=== PATIENT | female | born 1960 | race Caucasian/White ===

== ENCOUNTER 2019-03-08 08:56 | Emergency (ER) | payer MEDICAID ==
[~2019-03-08] VITALS: Ht 149.9 cm; Wt 53.1 kg
[2019-03-08 09:43] VITALS: BP 147/74
== END 2019-03-08 11:13 | disposition left against medical advice (07) ==
LOC: ER 08:56
DX: J02.9 Acute pharyngitis, unspecified (principal); E11.9 Type 2 diabetes mellitus without complications; I10 Essential (primary) hypertension; E78.5 Hyperlipidemia, unspecified; F17.210 Nicotine dependence, cigarettes, uncomplicated; Z12.10 Encounter for screening for malignant neoplasm of intestinal tract, unspecified; Z86.73 Personal history of transient ischemic attack (TIA), and cerebral infarction without residual deficits; Z53.29 Procedure and treatment not carried out because of patient's decision for other reasons

== ENCOUNTER 2019-03-13 06:28 | Emergency (ER) | payer MEDICAID ==
[~2019-03-13] VITALS: Ht 149.9 cm; Wt 53.1 kg
[2019-03-13 08:00] VITALS: BP 126/68
== END 2019-03-13 08:11 | disposition home or self-care (01) ==
LOC: ER 06:28
DX: H66.91 Otitis media, unspecified, right ear (principal); J02.9 Acute pharyngitis, unspecified; E11.9 Type 2 diabetes mellitus without complications; E78.5 Hyperlipidemia, unspecified; I10 Essential (primary) hypertension; F17.210 Nicotine dependence, cigarettes, uncomplicated; F12.90 Cannabis use, unspecified, uncomplicated; Z86.73 Personal history of transient ischemic attack (TIA), and cerebral infarction without residual deficits

== ENCOUNTER 2021-01-07 10:53 | Inpatient (IN) | payer MEDICAID ==
[~2021-01-07] VITALS: Ht 142.2 cm; Wt 57.7 kg
[2021-01-07] VITALS (12 sets, daily range): BP systolic 91–143; BP diastolic 55–75
[2021-01-07] MEDS ORDERED: PIPERACILLIN-TAZOB 3.375GM 100 ML IV ONE (11:15)
[2021-01-07] MEDS ORDERED: VANCOMYCIN PER PHARMACY 0 MG IV SCH (11:15)
[2021-01-07] MEDS ORDERED: SODIUM CHLORIDE 0.9% 1,000 ML IV ONE (11:15)
[2021-01-07 11:32] LABS: Basophils # (auto) 0 10 ^3/uL (0-0.2); Basophils % (auto) 0.3 % (0.0-2.0); Eosinophils # (auto) 0 10 ^3/uL (0-0.8); Hematocrit 34.3 % (36.0-46.0); Hemoglobin 11.5 g/dL (12.2-16.2); Lymphocytes # (auto) 0.6 10 ^3/uL (0.4-5.4); Lymphocytes % (auto) 5.8 % (10.0-50.0); Mean Corpuscular Hemoglobin 29.4 pg (28.0-32.0); Mean Corpuscular Hgb Conc. 33.6 g/dL (32.0-36.0); Mean Corpuscular Volume 87.6 fL (80.0-100.0); Monocytes # (auto) 0.3 10 ^3/uL (0-1.3); Monocytes % (auto) 2.4 % (0.0-12.0); Neutrophils % (auto) 91.5 % (37.0-80.0); Platelet Count (auto) 271 10^3/uL (140-450); Red Blood Cells 3.92 10^6/uL (4.0-5.20); Red Cell Distribution Width 15.1 % (11.8-14.3)
[2021-01-07 11:47] LABS: INR 1.18 (0.9-1.15); Partial Thromboplastin Time 30.3 sec (23.0-31.2)
[2021-01-07] MEDS: SODIUM CHLORIDE 0.9% 1,000 ML IV ONE ×2 (12:15→12:48)
[2021-01-07 12:40] LABS: Albumin 2.6 g/dL (3.4-5.0); Anion Gap 14 (5-15); Blood Urea Nitrogen 25 mg/dL (7-18); Carbon Dioxide 16 mmol/L (21-32); Chloride 104 mmol/L (98-107); Glucose 201 mg/dL (74-106); Lactic Acid w/Reflex 4.1 mmol/L (0.4-2.0); Sodium 134 mmol/L (136-145)
[2021-01-07 12:43] LABS: Alanine Aminotransferase 52 U/L (13-56); Aspartate Aminotransferase 34 U/L (15-37); BUN/Creatinine Ratio 16.6; Blood Alcohol < 3.0 mg/dL (0-5); GFR African American 45 mL/min; GFR Non-African American 37 mL/min
[2021-01-07 12:48] LABS: Alkaline Phosphatase 78 U/L (45-117); Bilirubin, Total 0.6 mg/dL (0.2-1.0); Total Protein 7.3 g/dL (6.4-8.2)
[2021-01-07 12:57] LABS: Magnesium 0.8 mg/dL (1.6-2.6); Potassium 2.7 mmol/L (3.5-5.1)
[2021-01-07] MEDS ORDERED: POTASSIUM CHL 20MEQ/100ML 100 ML IV ONE (13:00)
[2021-01-07] MEDS ORDERED: LIDOCAINE 1% HCL (LOCAL ANESTH.) INJ 20ML MDV ID ONE (13:30)
[2021-01-07] MEDS: MAGNESIUM SULFATE 1GM/100ML 100 ML IV SCH ×5 (13:41→18:30)
[2021-01-07] MEDS ORDERED: NOREPINEPHRINE 8 MG/250ML KIT 250 ML IV ONE (13:49)
[2021-01-07] MEDS: NOREPINEPHRINE 8 MG/250ML KIT 250 ML IV SCH (14:14)
[2021-01-07] MEDS ORDERED: methylPREDNISolone SOD SUCC 125 MG/2 ML VL IV ONE (14:15)
[2021-01-07] MEDS ORDERED: ETOMIDATE (2MG/ML) 20ML VIAL IV ONE ×2 (14:29→14:30)
[2021-01-07] MEDS ORDERED: SUCCINYLCHOLINE CHLORIDE 20 MG/ML 10ML VIAL IV ONE ×2 (14:30)
[2021-01-07] MEDS ORDERED: PROPOFOL 100 ML IV ONE (14:30)
[2021-01-07] MEDS: PROPOFOL 100 ML IV SCH (14:40)
[2021-01-07] MEDS ORDERED: MIDAZOLAM HCL 5 MG/ML-1ML VIAL ONE ×2 (14:49→14:51)
[2021-01-07] MEDS ORDERED: MIDAZOLAM HCL 5 MG/ML-1ML VIAL IV ONE (15:00)
[2021-01-07] MEDS ORDERED: VANCOMYCIN 1GM/250ML 250 ML IV ONE (16:00)
[2021-01-07 16:26] LABS: Urine Amorphous Crystal FEW /hpf (None Seen); Urine Bacteria FEW /hpf (None Seen); Urine Blood Negative /uL (Negative); Urine Specific Gravity 1.031 (1.001-1.035); Urine WBC 2 /hpf (0 - 5)
[2021-01-07 16:45] LABS: Alcohol, Urine < 3.0 mg/dL (0-10); Amphetamine Screen, Urine POSITIVE (NEGATIVE); Barbiturate Scree,Urine NEGATIVE (NEGATIVE); Benzodiazephine Screen, Urine NEGATIVE (NEGATIVE); Cannabinoid Screen, Urine NEGATIVE (NEGATIVE); Cocaine Screen, Urine NEGATIVE (NEGATIVE); Opiate Scree,Urine NEGATIVE (NEGATIVE); Phencyclidine Screen, Urine NEGATIVE (NEGATIVE)
[2021-01-07] MEDS: SODIUM BICARBONATE 50ML VIAL 100 ML in SOD CHL 0.45% 1,000 ML IV SCH (19:08)
[2021-01-07] MEDS ORDERED: levoFLOXacin 500MG 100 ML IV ONE (20:00)
[2021-01-07] MEDS ORDERED: ACETAMINOPHEN 325 MG TAB PO PRN (20:00)
[2021-01-07 21:17] LABS: Amylase 28 U/L (25-115); Lipase 25 U/L (73-393)
[2021-01-07 21:19] LABS: Creatine Kinase IFCC 40 U/L (26-192)
[2021-01-07] MEDS ORDERED: SIMV-8 PO (21:31)
[2021-01-07] MEDS ORDERED: ENAL20TA8 PO (21:31)
[2021-01-07] MEDS ORDERED: BRIM0.2S17 EACHEYE (21:31)
[2021-01-07] MEDS ORDERED: FERR325T20 PO (21:31)
[2021-01-07] MEDS ORDERED: ALEN70TA74 PO (21:31)
[2021-01-07] MEDS ORDERED: DORZ2SOL26 (21:32)
[2021-01-07] MEDS ORDERED: GLIP5TAB12 PO (21:32)
[2021-01-07] MEDS ORDERED: METF-372 PO (21:32)
[2021-01-07] MEDS ORDERED: CLOP75TA70 PO (21:32)
[2021-01-07] MEDS ORDERED: LATA0.0019 RIGHTEYE (21:32)
[2021-01-08] VITALS (104 sets, daily range): BP systolic 86–148; BP diastolic 55–82
[2021-01-08] MEDS: PROPOFOL 100 ML IV SCH ×5 (00:46→20:04)
[2021-01-08] MEDS ORDERED: SODIUM BICARBONATE 8.4 % INJ 50ML VIAL IV ONE (02:13)
[2021-01-08] MEDS ORDERED: DEXTROSE (50%) 50ML SYRG IV PRN (02:15)
[2021-01-08] MEDS: MIDAZOLAM DRIP 50 mg/50mL 50 ML IV SCH ×2 (02:44→13:25)
[2021-01-08] MEDS: SODIUM BICARBONATE 50ML VIAL 100 ML in SOD CHL 0.45% 1,000 ML IV SCH ×2 (02:44→09:59)
[2021-01-08 05:29] LABS: Basophils # (auto) 0 10 ^3/uL (0-0.2); Eosinophils # (auto) 0 10 ^3/uL (0-0.8); Hematocrit 28.4 % (36.0-46.0); Hemoglobin 9.5 g/dL (12.2-16.2); Lymphocytes # (auto) 0.8 10 ^3/uL (0.4-5.4); Lymphocytes % (auto) 4.3 % (10.0-50.0); Mean Corpuscular Hemoglobin 28.8 pg (28.0-32.0); Mean Corpuscular Hgb Conc. 33.5 g/dL (32.0-36.0); Mean Corpuscular Volume 85.9 fL (80.0-100.0); Monocytes # (auto) 0.6 10 ^3/uL (0-1.3); Monocytes % (auto) 3.2 % (0.0-12.0); Neutrophils # (auto) 18.2 10 ^3/uL (1.6-8.6); Neutrophils % (auto) 92.5 % (37.0-80.0); Platelet Count (auto) 254 10^3/uL (140-450); Red Cell Distribution Width 14.9 % (11.8-14.3); White Blood Cell 19.7 10^3/uL (4.4-10.8)
[2021-01-08 05:37] LABS: BUN/Creatinine Ratio 31.1; Calcium 7.4 mg/dL (8.5-10.1); Potassium 3.5 mmol/L (3.5-5.1)
[2021-01-08 05:38] LABS: % Iron Saturation 2.8 % (15-50)
[2021-01-08 05:53] LABS: Alanine Aminotransferase 37 U/L (13-56); Albumin 2.1 g/dL (3.4-5.0); Bilirubin, Direct 0.1 mg/dL (0-0.2)
[2021-01-08] MEDS: InsuLIN REG 1unit/0.01ml Soln (100units/ml) SC SCH ×3 (05:55→17:34)
[2021-01-08] MEDS: ACCU-CHEK COMFORT CURVE STRIP VI SCH ×4 (05:55→23:59)
[2021-01-08 06:01] LABS: Alkaline Phosphatase 116 U/L (45-117); Aspartate Aminotransferase 15 U/L (15-37); Bilirubin, Total 0.3 mg/dL (0.2-1.0); Total Protein 6.5 g/dL (6.4-8.2)
[2021-01-08 06:03] LABS: INR 1.09 (0.9-1.15); Partial Thromboplastin Time 35.2 sec (23.0-31.2)
[2021-01-08 06:14] LABS: CRP High Sensitivity > 19 mg/dL (< 0.3)
[2021-01-08] MEDS: ALBUTEROL SULF 2.5 MG/0.5ML(0.5%) NEB SOLN NEB SCH ×4 (06:41→18:19)
[2021-01-08] MEDS: IPRATROPIUM BROM 0.5 MG/2.5ML INH SOL NEB SCH ×4 (06:41→18:19)
[2021-01-08] MEDS: DexAMETHasone SOD PHOS 10MG/1ML VIAL INJ IV SCH (09:38)
[2021-01-08] MEDS: levoFLOXacin 250MG 50 ML IV SCH (09:38)
[2021-01-08] MEDS: ENOXAPARIN SOD 40 MG/0.4 ML SYRINGE SC SCH (09:39)
[2021-01-08] MEDS: CLOPIDOGREL BISULFATE 75 MG TAB PO SCH (09:39)
[2021-01-08] MEDS: VANCOMYCIN 1GM/250ML 250 ML IV SCH ×2 (10:30→20:59)
[2021-01-08] MEDS: NOREPINEPHRINE 8 MG/250ML KIT 250 ML IV SCH (14:00)
[2021-01-08] MEDS ORDERED: REMDESIVIR PER PHARMACY 0 ML IV SCH (16:00)
[2021-01-08] MEDS ORDERED: REMDESIVIR 200 MG in NS 210ml LOADING DOSE ADULT IV ONE (17:00)
[2021-01-08] MEDS: ATORVASTATIN 20 MG TAB PO SCH (21:54)
[2021-01-09] VITALS (98 sets, daily range): BP systolic 92–165; BP diastolic 58–92
[2021-01-09] MEDS: IPRATROPIUM BROM 0.5 MG/2.5ML INH SOL NEB SCH ×4 (00:17→18:21)
[2021-01-09] MEDS: ALBUTEROL SULF 2.5 MG/0.5ML(0.5%) NEB SOLN NEB SCH ×4 (00:17→18:21)
[2021-01-09] MEDS: PROPOFOL 100 ML IV SCH ×4 (01:36→22:57)
[2021-01-09] MEDS: MIDAZOLAM DRIP 50 mg/50mL 50 ML IV SCH (01:37)
[2021-01-09 04:34] LABS: Albumin 1.9 g/dL (3.4-5.0); Calcium 7.1 mg/dL (8.5-10.1); Potassium 3.6 mmol/L (3.5-5.1)
[2021-01-09 04:38] LABS: BUN/Creatinine Ratio 37.2; Bilirubin, Total 0.3 mg/dL (0.2-1.0); Total Protein 6.4 g/dL (6.4-8.2)
[2021-01-09] MEDS: ACCU-CHEK COMFORT CURVE STRIP VI SCH ×4 (06:00→23:55)
[2021-01-09] MEDS: InsuLIN REG 1unit/0.01ml Soln (100units/ml) SC SCH ×5 (06:03→23:56)
[2021-01-09] MEDS: CLOPIDOGREL BISULFATE 75 MG TAB PO SCH ×2 (07:15→10:00)
[2021-01-09] MEDS: VANCOMYCIN 1GM/250ML 250 ML IV SCH ×2 (09:01→21:00)
[2021-01-09] MEDS: DexAMETHasone SOD PHOS 10MG/1ML VIAL INJ IV SCH (09:55)
[2021-01-09] MEDS: levoFLOXacin 250MG 50 ML IV SCH (09:56)
[2021-01-09] MEDS: ENOXAPARIN SOD 40 MG/0.4 ML SYRINGE SC SCH (09:56)
[2021-01-09] MEDS: NOREPINEPHRINE 8 MG/250ML KIT 250 ML IV SCH (13:25)
[2021-01-09] MEDS ORDERED: DEXTROSE (50%) 50ML SYRG IV PRN (14:45)
[2021-01-09] MEDS ORDERED: clonazePAM 0.5 MG TAB PO SCH (15:00)
[2021-01-09] MEDS: REMDESIVIR 100mg 100 MG in SODIUM CHL 0.9% 230 ML IV SCH (15:18)
[2021-01-09] MEDS: QUEtiapine FUMARATE 25 MG TAB PO SCH ×2 (15:47→22:10)
[2021-01-09] MEDS: ATORVASTATIN 20 MG TAB PO SCH (22:10)
[2021-01-09] MEDS: clonazePAM 0.5 MG TAB PO SCH (22:10)
[2021-01-09] MEDS: BRIMONIDINE 0.2% OPTH Soln 5ml EACHEYE SCH (22:10)
[2021-01-10] VITALS (105 sets, daily range): BP systolic 102–172; BP diastolic 62–96
[2021-01-10] MEDS: ALBUTEROL SULF 2.5 MG/0.5ML(0.5%) NEB SOLN NEB SCH ×4 (00:20→18:57)
[2021-01-10] MEDS: IPRATROPIUM BROM 0.5 MG/2.5ML INH SOL NEB SCH ×4 (00:20→18:57)
[2021-01-10] MEDS: MIDAZOLAM DRIP 50 mg/50mL 50 ML IV SCH ×2 (01:56→20:30)
[2021-01-10] MEDS: PROPOFOL 100 ML IV SCH ×4 (03:52→21:48)
[2021-01-10] MEDS ORDERED: VANCOMYCIN 1GM/250ML 250 ML IV ONE (04:00)
[2021-01-10 04:26] LABS: Calcium 7.3 mg/dL (8.5-10.1); Potassium 3.6 mmol/L (3.5-5.1)
[2021-01-10 04:30] LABS: BUN/Creatinine Ratio 37.8; Bilirubin, Total 0.4 mg/dL (0.2-1.0); Total Protein 6.4 g/dL (6.4-8.2)
[2021-01-10] MEDS: BRIMONIDINE 0.2% OPTH Soln 5ml EACHEYE SCH ×3 (05:58→21:46)
[2021-01-10] MEDS: ACCU-CHEK COMFORT CURVE STRIP VI SCH ×3 (05:58→17:34)
[2021-01-10] MEDS: InsuLIN REG 1unit/0.01ml Soln (100units/ml) SC SCH ×3 (05:59→17:34)
[2021-01-10] MEDS: DexAMETHasone SOD PHOS 10MG/1ML VIAL INJ IV SCH (09:52)
[2021-01-10] MEDS: levoFLOXacin 250MG 50 ML IV SCH (09:52)
[2021-01-10] MEDS: clonazePAM 0.5 MG TAB PO SCH ×3 (09:53→21:46)
[2021-01-10] MEDS: CLOPIDOGREL BISULFATE 75 MG TAB PO SCH (09:53)
[2021-01-10] MEDS: PANTOPRAZOLE 40 MG/10 ML VIAL INJ IV SCH (09:53)
[2021-01-10] MEDS: ENOXAPARIN SOD 40 MG/0.4 ML SYRINGE SC SCH (09:53)
[2021-01-10] MEDS: QUEtiapine FUMARATE 25 MG TAB PO SCH ×2 (09:53→21:47)
[2021-01-10] MEDS: NOREPINEPHRINE 8 MG/250ML KIT 250 ML IV SCH (14:00)
[2021-01-10] MEDS: REMDESIVIR 100mg 100 MG in SODIUM CHL 0.9% 230 ML IV SCH (14:51)
[2021-01-10 16:04] LABS: Hematocrit 27.2 % (36.0-46.0); Hemoglobin 9.3 g/dL (12.2-16.2); Mean Corpuscular Hemoglobin 29.8 pg (28.0-32.0); Mean Corpuscular Hgb Conc. 34.1 g/dL (32.0-36.0); Mean Corpuscular Volume 87.4 fL (80.0-100.0); Platelet Count (auto) 226 10^3/uL (140-450); Red Blood Cells 3.11 10^6/uL (4.0-5.20); Red Cell Distribution Width 15.5 % (11.8-14.3); White Blood Cell 12.3 10^3/uL (4.4-10.8)
[2021-01-10 16:06] LABS: Basophils % (manual) 0 (0.0-2.0); Blast Cells 0; Eosinophils % (manual) 0 (0-7); Metamyelocytes % 0; Myelocytes % 0; Promyelocytes % 0; Reactive Lymphocytes 0
[2021-01-10 17:03] LABS: Band Neutrophils % (manual) 4; Lymphocytes % (manual) 8 (10.0-50.0); Monocytes % (manual) 9 (0-12)
[2021-01-10] MEDS ORDERED: VANCOMYCIN 1GM/250ML 250 ML IV SCH (20:00)
[2021-01-10] MEDS: ATORVASTATIN 20 MG TAB PO SCH (21:47)
[2021-01-11] VITALS (104 sets, daily range): BP systolic 118–154; BP diastolic 71–93
[2021-01-11] MEDS: IPRATROPIUM BROM 0.5 MG/2.5ML INH SOL NEB SCH ×4 (00:06→18:42)
[2021-01-11] MEDS: ALBUTEROL SULF 2.5 MG/0.5ML(0.5%) NEB SOLN NEB SCH ×4 (00:06→18:42)
[2021-01-11] MEDS: ACCU-CHEK COMFORT CURVE STRIP VI SCH ×5 (00:27→23:03)
[2021-01-11] MEDS: InsuLIN REG 1unit/0.01ml Soln (100units/ml) SC SCH ×5 (00:28→23:03)
[2021-01-11] MEDS: FERROUS SULFATE 300 MG/5 ML ORAL LIQ GT SCH ×4 (00:49→23:02)
[2021-01-11] MEDS: MIDAZOLAM DRIP 50 mg/50mL 50 ML IV SCH ×2 (03:30→19:47)
[2021-01-11] MEDS: PROPOFOL 100 ML IV SCH ×3 (03:30→20:16)
[2021-01-11 04:51] LABS: Hematocrit 28.2 % (36.0-46.0); Hemoglobin 9.6 g/dL (12.2-16.2); Mean Corpuscular Hemoglobin 29.2 pg (28.0-32.0); Mean Corpuscular Hgb Conc. 33.9 g/dL (32.0-36.0); Mean Corpuscular Volume 86.1 fL (80.0-100.0); Platelet Count (auto) 218 10^3/uL (140-450); Red Blood Cells 3.28 10^6/uL (4.0-5.20); Red Cell Distribution Width 14.9 % (11.8-14.3); White Blood Cell 11.3 10^3/uL (4.4-10.8)
[2021-01-11 05:01] LABS: Potassium 3.4 mmol/L (3.5-5.1)
[2021-01-11 05:08] LABS: Albumin 2.1 g/dL (3.4-5.0); BUN/Creatinine Ratio 31.2; Basophils % (manual) 0 (0.0-2.0); Bilirubin, Total 0.3 mg/dL (0.2-1.0); Blast Cells 0; Calcium 7.7 mg/dL (8.5-10.1); Eosinophils % (manual) 0 (0-7); Promyelocytes % 0; Reactive Lymphocytes 0; Total Protein 6.4 g/dL (6.4-8.2)
[2021-01-11 05:47] LABS: Band Neutrophils % (manual) 2; Lymphocytes % (manual) 19 (10.0-50.0); Metamyelocytes % 1; Monocytes % (manual) 6 (0-12); Myelocytes % 3
[2021-01-11] MEDS: BRIMONIDINE 0.2% OPTH Soln 5ml EACHEYE SCH ×3 (06:12→23:02)
[2021-01-11] MEDS: PANTOPRAZOLE 40 MG/10 ML VIAL INJ IV SCH (09:52)
[2021-01-11] MEDS: clonazePAM 0.5 MG TAB PO SCH ×2 (09:52→23:02)
[2021-01-11] MEDS: levoFLOXacin 250MG 50 ML IV SCH (09:52)
[2021-01-11] MEDS: CLOPIDOGREL BISULFATE 75 MG TAB PO SCH (09:52)
[2021-01-11] MEDS: DexAMETHasone SOD PHOS 10MG/1ML VIAL INJ IV SCH (09:52)
[2021-01-11] MEDS: ENOXAPARIN SOD 40 MG/0.4 ML SYRINGE SC SCH (09:53)
[2021-01-11] MEDS: QUEtiapine FUMARATE 25 MG TAB PO SCH ×2 (09:53→23:03)
[2021-01-11] MEDS ORDERED: IOHEXOL 350 MG/ML 100ML IJ ONE (10:48)
[2021-01-11] MEDS: NOREPINEPHRINE 8 MG/250ML KIT 250 ML IV SCH (14:00)
[2021-01-11] MEDS: REMDESIVIR 100mg 100 MG in SODIUM CHL 0.9% 230 ML IV SCH (15:49)
[2021-01-11] MEDS: ATORVASTATIN 20 MG TAB PO SCH (23:03)
[2021-01-12] VITALS (79 sets, daily range): BP systolic 131–175; BP diastolic 66–129
[2021-01-12] MEDS: ALBUTEROL SULF 2.5 MG/0.5ML(0.5%) NEB SOLN NEB SCH ×4 (00:47→18:00)
[2021-01-12] MEDS: IPRATROPIUM BROM 0.5 MG/2.5ML INH SOL NEB SCH ×4 (00:47→18:00)
[2021-01-12] MEDS: PROPOFOL 100 ML IV SCH (04:09)
[2021-01-12 04:59] LABS: Hematocrit 31.5 % (36.0-46.0); Hemoglobin 10.3 g/dL (12.2-16.2); Mean Corpuscular Hemoglobin 28.5 pg (28.0-32.0); Mean Corpuscular Hgb Conc. 32.8 g/dL (32.0-36.0); Platelet Count (auto) 262 10^3/uL (140-450); Red Blood Cells 3.62 10^6/uL (4.0-5.20); White Blood Cell 11.2 10^3/uL (4.4-10.8)
[2021-01-12 05:16] LABS: Albumin 2.1 g/dL (3.4-5.0); Basophils % (manual) 0 (0.0-2.0); Blast Cells 0; Calcium 8.4 mg/dL (8.5-10.1); Eosinophils % (manual) 0 (0-7); Potassium 3.5 mmol/L (3.5-5.1); Promyelocytes % 0; Reactive Lymphocytes 0
[2021-01-12 05:17] LABS: INR 0.96 (0.9-1.15); Partial Thromboplastin Time 23.9 sec (23.0-31.2)
[2021-01-12 05:19] LABS: BUN/Creatinine Ratio 39.1; Bilirubin, Total 0.3 mg/dL (0.2-1.0); Total Protein 6.3 g/dL (6.4-8.2)
[2021-01-12] MEDS: InsuLIN REG 1unit/0.01ml Soln (100units/ml) SC SCH ×4 (05:19→23:58)
[2021-01-12] MEDS: ACCU-CHEK COMFORT CURVE STRIP VI SCH ×4 (05:19→23:58)
[2021-01-12] MEDS: FERROUS SULFATE 300 MG/5 ML ORAL LIQ GT SCH ×3 (05:36→21:32)
[2021-01-12] MEDS: BRIMONIDINE 0.2% OPTH Soln 5ml EACHEYE SCH ×3 (05:36→21:32)
[2021-01-12 05:45] LABS: Band Neutrophils % (manual) 4; Lymphocytes % (manual) 22 (10.0-50.0); Metamyelocytes % 1; Monocytes % (manual) 8 (0-12); Myelocytes % 1
[2021-01-12] MEDS: levoFLOXacin 250MG 50 ML IV SCH (10:39)
[2021-01-12] MEDS: DexAMETHasone SOD PHOS 10MG/1ML VIAL INJ IV SCH (10:39)
[2021-01-12] MEDS: clonazePAM 0.5 MG TAB PO SCH ×2 (10:40→21:32)
[2021-01-12] MEDS: ENOXAPARIN SOD 40 MG/0.4 ML SYRINGE SC SCH (10:40)
[2021-01-12] MEDS: QUEtiapine FUMARATE 25 MG TAB PO SCH ×2 (10:40→21:33)
[2021-01-12] MEDS: CLOPIDOGREL BISULFATE 75 MG TAB PO SCH (10:40)
[2021-01-12] MEDS: PANTOPRAZOLE 40 MG/10 ML VIAL INJ IV SCH (10:40)
[2021-01-12] MEDS ORDERED: LORazepam 2MG/ML-1ML VIAL ONE (12:26)
[2021-01-12] MEDS ORDERED: LORazepam 2MG/ML-1ML VIAL IV PRN (13:00)
[2021-01-12] MEDS: REMDESIVIR 100mg 100 MG in SODIUM CHL 0.9% 230 ML IV SCH (15:28)
[2021-01-12] MEDS ORDERED: hydrALAZINE HCL 20 MG/ML VL IV PRN (17:00)
[2021-01-12] MEDS: MORPHINE SULF INJ 2 MG/ML SYRINGE 1ML IV PRN (18:58)
[2021-01-12] MEDS: NOREPINEPHRINE 8 MG/250ML KIT 250 ML IV SCH (19:00)
[2021-01-12] MEDS ORDERED: HALOPERIDOL LACTATE 5 MG/ML INJ VIAL IV PRN ×3 (20:45→21:30)
[2021-01-12] MEDS: ATORVASTATIN 20 MG TAB PO SCH (21:32)
[2021-01-13] VITALS (7 sets, daily range): BP systolic 104–151; BP diastolic 61–96
[2021-01-13] MEDS: ALBUTEROL SULF 2.5 MG/0.5ML(0.5%) NEB SOLN NEB SCH ×4 (05:40→18:46)
[2021-01-13] MEDS: IPRATROPIUM BROM 0.5 MG/2.5ML INH SOL NEB SCH ×4 (05:40→18:46)
[2021-01-13] MEDS: InsuLIN REG 1unit/0.01ml Soln (100units/ml) SC SCH ×4 (06:35→23:52)
[2021-01-13] MEDS: ACCU-CHEK COMFORT CURVE STRIP VI SCH ×4 (06:35→23:51)
[2021-01-13] MEDS: FERROUS SULFATE 300 MG/5 ML ORAL LIQ GT SCH ×3 (06:52→22:03)
[2021-01-13] MEDS: BRIMONIDINE 0.2% OPTH Soln 5ml EACHEYE SCH ×3 (06:52→22:03)
[2021-01-13] MEDS: MORPHINE SULF INJ 2 MG/ML SYRINGE 1ML IV PRN (08:22)
[2021-01-13] MEDS: levoFLOXacin 250MG 50 ML IV SCH (10:17)
[2021-01-13] MEDS: DexAMETHasone SOD PHOS 10MG/1ML VIAL INJ IV SCH (10:17)
[2021-01-13] MEDS: PANTOPRAZOLE 40 MG/10 ML VIAL INJ IV SCH (10:17)
[2021-01-13] MEDS: CLOPIDOGREL BISULFATE 75 MG TAB PO SCH (10:17)
[2021-01-13] MEDS: QUEtiapine FUMARATE 25 MG TAB PO SCH ×2 (10:18→22:04)
[2021-01-13 10:37] LABS: Hematocrit 37.2 % (36.0-46.0); Hemoglobin 12.1 g/dL (12.2-16.2); Mean Corpuscular Hemoglobin 28.2 pg (28.0-32.0); Mean Corpuscular Hgb Conc. 32.7 g/dL (32.0-36.0); Mean Corpuscular Volume 86.3 fL (80.0-100.0); Platelet Count (auto) 273 10^3/uL (140-450); Red Blood Cells 4.31 10^6/uL (4.0-5.20); White Blood Cell 13.6 10^3/uL (4.4-10.8)
[2021-01-13 10:39] LABS: Basophils % (manual) 0 (0.0-2.0); Blast Cells 0; Eosinophils % (manual) 0 (0-7); Promyelocytes % 0; Reactive Lymphocytes 0
[2021-01-13 10:50] LABS: BUN/Creatinine Ratio 38.8; Calcium 8.4 mg/dL (8.5-10.1)
[2021-01-13 11:29] LABS: Potassium 2.7 mmol/L (3.5-5.1)
[2021-01-13] MEDS ORDERED: POTASSIUM EFFERVESENT TAB 25 MEQ PO ONE (12:30)
[2021-01-13] MEDS ORDERED: POTASSIUM CHL 20MEQ/100ML 100 ML IV ONE (12:30)
[2021-01-13 13:40] LABS: Band Neutrophils % (manual) 2; Lymphocytes % (manual) 10 (10.0-50.0)
[2021-01-13 13:41] LABS: Metamyelocytes % 5; Monocytes % (manual) 5 (0-12); Myelocytes % 3
[2021-01-13] MEDS: FREE WATER PO SCH ×3 (15:17→22:03)
[2021-01-13 18:03] LABS: BUN/Creatinine Ratio 30.2; Potassium 4.6 mmol/L (3.5-5.1)
[2021-01-13] MEDS: ATORVASTATIN 20 MG TAB PO SCH (22:03)
[2021-01-14] MEDS: ALBUTEROL SULF 2.5 MG/0.5ML(0.5%) NEB SOLN NEB SCH ×3 (00:35→11:47)
[2021-01-14] MEDS: IPRATROPIUM BROM 0.5 MG/2.5ML INH SOL NEB SCH ×3 (00:35→11:47)
[2021-01-14] MEDS: FREE WATER PO SCH ×4 (02:00→14:00)
[2021-01-14 04:48] VITALS: BP 109/61
[2021-01-14] MEDS: BRIMONIDINE 0.2% OPTH Soln 5ml EACHEYE SCH ×2 (05:58→13:28)
[2021-01-14] MEDS: FERROUS SULFATE 300 MG/5 ML ORAL LIQ GT SCH ×2 (05:58→13:29)
[2021-01-14] MEDS: ACCU-CHEK COMFORT CURVE STRIP VI SCH ×2 (05:59→10:58)
[2021-01-14] MEDS: InsuLIN REG 1unit/0.01ml Soln (100units/ml) SC SCH ×2 (05:59→11:11)
[2021-01-14 08:44] VITALS: BP 111/60
[2021-01-14] MEDS: DexAMETHasone SOD PHOS 10MG/1ML VIAL INJ IV SCH (09:56)
[2021-01-14] MEDS: CLOPIDOGREL BISULFATE 75 MG TAB PO SCH (09:57)
[2021-01-14] MEDS: PANTOPRAZOLE 40 MG/10 ML VIAL INJ IV SCH (09:57)
[2021-01-14] MEDS: QUEtiapine FUMARATE 25 MG TAB PO SCH (09:57)
[2021-01-14] MEDS: levoFLOXacin 250MG 50 ML IV SCH (09:57)
[2021-01-14 13:00] VITALS: BP 94/53
== END 2021-01-14 15:52 | DRG 720 ==
LOC: ER 10:53 → TELE 19:56 → ICU WEST 21:40 → TELE-EAST 01-13 00:45
PROVIDERS: ADMIT Internal Medicine; ATTEND Internal Medicine
PROC: 02HV33Z Insertion of Infusion Device into Superior Vena Cava, Percutaneous Approach (ICD-10-PCS; principal; 2021-01-07)
PROC: 5A1955Z Respiratory Ventilation, Greater than 96 Consecutive Hours (ICD-10-PCS; 2021-01-07)
PROC: 0BH17EZ Insertion of Endotracheal Airway into Trachea, Via Natural or Artificial Opening (ICD-10-PCS; 2021-01-07)
PROC: XW033E5 Introduction of Remdesivir Anti-infective into Peripheral Vein, Percutaneous Approach, New Technology Group 5 (ICD-10-PCS; 2021-01-08)
DX: A41.89 Other specified sepsis (principal); U07.1 COVID-19; J96.01 Acute respiratory failure with hypoxia; R65.21 Severe sepsis with septic shock; J12.82 Pneumonia due to coronavirus disease 2019; E87.4 Mixed disorder of acid-base balance; N17.9 Acute kidney failure, unspecified; E83.42 Hypomagnesemia; F15.20 Other stimulant dependence, uncomplicated; E11.9 Type 2 diabetes mellitus without complications; E78.5 Hyperlipidemia, unspecified; E87.6 Hypokalemia; H40.9 Unspecified glaucoma; I10 Essential (primary) hypertension; J98.11 Atelectasis; M81.0 Age-related osteoporosis without current pathological fracture; F17.210 Nicotine dependence, cigarettes, uncomplicated; F12.90 Cannabis use, unspecified, uncomplicated; Z86.73 Personal history of transient ischemic attack (TIA), and cerebral infarction without residual deficits; Z82.49 Family history of ischemic heart disease and other diseases of the circulatory system; Z79.4 Long term (current) use of insulin; Z79.02 Long term (current) use of antithrombotics/antiplatelets; Z80.0 Family history of malignant neoplasm of digestive organs
CPT/HCPCS: 31500; 36415; 36600; 51702; 70450; 71045; 71250; 71275; 80048; 80053; 80076; 80202; 80307; 80320; 81001; 82150; 82550; 82728; 82805; 82962; 83540; 83550; 83605; 83690; 83735; 83880; 84484; 85007; 85025; 85027; 85379; 85610; 85730; 86141; 87040; 87070; 87081; 87086; 87205; 87426; 93005; 93970; 94002; 94003; 94640; 96365; 96366; 96367; 96375; 97110; A4618; C9113; G0378; J0330; J1100; J1815; J1956; J2250; J2543; J2704; J3480; J7060

== ENCOUNTER 2021-03-06 14:32 | Emergency (ER) | payer MEDICARE, MEDICAID ==
[~2021-03-06] VITALS: Ht 149.9 cm; Wt 54.0 kg
[~2021-03-06 14:32] MED LIST: ALEN70TA74 PO; BRIM0.2S17 EACHEYE; CLOP75TA70 PO; DORZ2SOL26; ENAL20TA8 PO; FERR325T20 PO; GLIP5TAB12 PO; LATA0.0019 RIGHTEYE; METF-372 PO; SIMV-8 PO
[2021-03-06 14:48] VITALS: BP 117/66
[2021-03-06 15:19] LABS: Basophils # (auto) 0.1 10 ^3/uL (0-0.2); Basophils % (auto) 0.7 % (0.0-2.0); Eosinophils # (auto) 0.4 10 ^3/uL (0-0.8); Eosinophils % (auto) 4.7 % (0.0-7.0); Hematocrit 33.9 % (36.0-46.0); Hemoglobin 11.6 g/dL (12.2-16.2); Lymphocytes # (auto) 1.7 10 ^3/uL (0.4-5.4); Lymphocytes % (auto) 21.7 % (10.0-50.0); Mean Corpuscular Hemoglobin 28.8 pg (28.0-32.0); Mean Corpuscular Hgb Conc. 34.2 g/dL (32.0-36.0); Mean Corpuscular Volume 84.3 fL (80.0-100.0); Monocytes # (auto) 0.5 10 ^3/uL (0-1.3); Monocytes % (auto) 6.3 % (0.0-12.0); Neutrophils # (auto) 5.1 10 ^3/uL (1.6-8.6); Neutrophils % (auto) 66.6 % (37.0-80.0); Platelet Count (auto) 298 10^3/uL (140-450); Red Blood Cells 4.02 10^6/uL (4.0-5.20); Red Cell Distribution Width 14.2 % (11.8-14.3); White Blood Cell 7.7 10^3/uL (4.4-10.8)
[2021-03-06 15:34] LABS: Albumin 3.7 g/dL (3.4-5.0); Calcium 9.1 mg/dL (8.5-10.1); Potassium 3.9 mmol/L (3.5-5.1)
[2021-03-06 15:37] LABS: BUN/Creatinine Ratio 28.7; Bilirubin, Total 0.3 mg/dL (0.2-1.0)
[2021-03-06 16:45] LABS: Urine Bacteria FEW /hpf (None Seen); Urine Blood Negative /uL (Negative); Urine Hyaline Cast FEW /lpf (0 - 2); Urine Specific Gravity 1.029 (1.001-1.035); Urine WBC 36 /hpf (0 - 5)
[2021-03-06 16:51] LABS: Alcohol, Urine < 3.0 mg/dL (0-10); Amphetamine Screen, Urine POSITIVE (NEGATIVE); Barbiturate Scree,Urine NEGATIVE (NEGATIVE); Benzodiazephine Screen, Urine NEGATIVE (NEGATIVE); Cannabinoid Screen, Urine NEGATIVE (NEGATIVE); Cocaine Screen, Urine NEGATIVE (NEGATIVE); Opiate Scree,Urine NEGATIVE (NEGATIVE); Phencyclidine Screen, Urine NEGATIVE (NEGATIVE)
== END 2021-03-06 16:34 | disposition home or self-care (01) ==
LOC: ER 14:32
DX: B34.9 Viral infection, unspecified (principal); F12.10 Cannabis abuse, uncomplicated; F15.10 Other stimulant abuse, uncomplicated; I10 Essential (primary) hypertension; E11.9 Type 2 diabetes mellitus without complications; E78.5 Hyperlipidemia, unspecified; Z86.73 Personal history of transient ischemic attack (TIA), and cerebral infarction without residual deficits; Z87.891 Personal history of nicotine dependence; Z79.899 Other long term (current) drug therapy; Z98.890 Other specified postprocedural states
CPT/HCPCS: 36415; 70450; 80053; 80307; 81001; 82728; 85025; 86141

== ENCOUNTER 2023-03-04 09:35 | Emergency (ER) | payer MEDICARE, MEDICAID ==
[~2023-03-04] VITALS: Ht 149.9 cm; Wt 56.2 kg
[2023-03-04] MEDS ORDERED: VALA1TAB PO (11:25)
[2023-03-04] MEDS ORDERED: TRAM50TA2 PO (11:25)
[2023-03-04 11:36] LABS: Urine Bacteria NONE SEEN /hpf (None Seen); Urine Blood Negative /uL (Negative); Urine Specific Gravity 1.028 (1.001-1.035); Urine WBC 2 /hpf (0 - 5)
[2023-03-04 11:43] VITALS: BP 101/82
== END 2023-03-04 11:49 | disposition home or self-care (01) ==
LOC: ER 09:35
DX: B02.9 Zoster without complications (principal); E11.9 Type 2 diabetes mellitus without complications; I10 Essential (primary) hypertension; E78.5 Hyperlipidemia, unspecified; F12.10 Cannabis abuse, uncomplicated; F15.10 Other stimulant abuse, uncomplicated; Z86.73 Personal history of transient ischemic attack (TIA), and cerebral infarction without residual deficits; Z98.890 Other specified postprocedural states; Z87.891 Personal history of nicotine dependence
CPT/HCPCS: 81001

== ENCOUNTER 2024-10-25 08:47 | Emergency (ER) | payer OTHER, MEDICAID ==
[~2024-10-25] VITALS: Ht 147.3 cm; Wt 47.8 kg
[~2024-10-25 08:47] MED LIST changes: +ENAL1TAB48 PO; -ENAL20TA8 PO; -GLIP5TAB12 PO; +GLIP5TAB21 PO; -LATA0.0019 RIGHTEYE; +LATA0.008 RIGHTEYE; -SIMV-8 PO; +SIMV20TA20 PO; +TRAM50TA2 PO; +VALA1TAB PO
--- NOTE | 2024-10-25 09:16 | ED.PDOC ---
Back pain HPI HPI Comments This is a pleasant 64-year-old female with no pertinent MHx that presents with a chief complaint of nonradiating right-sided rib pain x5 days. Onset occurred suddenly after patient hit her rib on her freezer attempting to pull out Tamales. He denies water and worsens with lateral movements. Denies chest pain shortness of breath. Chief Complaint: Rib Pain Time Seen by MD: 09:04 Primary Care Provider: derrell Gutierrez Notes: Nurses Notes, Medications, Allergies Allergies: Coded Allergies: NO KNOWN ALLERGIES (Unverified , 04/04/10) Home Meds Active Scripts Valacyclovir Hcl (Valtrex) 1 Gm Tab, 1 TAB PO TID, #21 TAB Prov:BRIAN FRANCO MD 03/04/23 Tramadol Hcl (Tramadol Hcl) 50 Mg Tab, 50 MG PO Q6HP PRN for 5 Days, #20 TAB Prov:BRIAN FRANCO MD 03/04/23 Reported Medications Glipizide (Glipizide) 5 Mg Tab, 1 TAB PO BID 01/07/21 Metformin Hydrochloride (Metformin Hcl) 1,000 Mg Tab, 1 TAB PO BID 01/07/21 Clopidogrel Bisulfate (CLOPIDOGREL) 75 Mg Tab, 1 TAB PO DAILYPRN 01/07/21 Dorzolamide HCl (Dorzolamide Hydrochloride) 2 % Radha 01/07/21 Latanoprost (LATANOPROST) 0.005 % Radha, 1 DROP RIGHTEYE 01/07/21 Ferrous Sulfate (Ferosul) 325 Mg Tab, 1 TAB PO Q8H 01/07/21 Alendronate Sodium (Alendronate Sodium) 70 Mg Tab, 1 TAB PO QWEEKLY 01/07/21 Brimonidine Tartrate (Brimonidine Tartrate) 0.2 % Radha, 1 DROP EACHEYE TID 01/07/21 Simvastatin (Simvastatin) 20 Mg Tab, 1 TAB PO 01/07/21 Enalapril Maleate (Enalapril Maleate) 20 Mg Tab, 1 TAB PO DAILYPRN 01/07/21 Information Source: Patient Mode of Arrival: Ambulatory Past Medical History PAST MEDICAL HISTORY: CVA, DM, High Lipids, HTN 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 Pertinent MANAGER FINE DINING History Family History Family History (Other): Thyroid disease Social History Smoker: Quit Less Than 1 Year Alcohol: Denies ETOH Use Drugs: Marijuana, Methamphetamine Lives In: Home All Other Systems: Reviewed and Negative (Per HPI) Physical Exam General Appearance: No Apparent Distress, Normal HEENT: Normal ENT Inspection, Pharynx Normal, TMs Normal Neck: Full Range of Motion, Non-Tender, Normal, Normal Inspection Respiratory: Chest Non-Tender, Lungs Clear, No Accessory Muscle Use, No Respiratory Distress, Normal Breath Sounds Cardiovascular: No Edema, No JVD, No Murmur, No Gallop, Normal Peripheral Pulses, Regular Rate/Rhythm Breast Exam: Deferred Gastrointestinal: No Organomegaly, Non Tender, No Pulsatile Mass, Normal Bowel Sounds, Soft Genitalia: Deferred Pelvic: Deferred Rectal: Deferred Extremities: No calf tenderness, Normal capillary refill, Normal inspection, Normal range of motion, Non-tender, No pedal edema Musculoskeletal : Apperance: Normal Neurologic: Alert, network operations center technician II-XII nml as Tested, No Motor Deficits, Normal Affect, Normal Mood, No Sensory Deficits Cerebellar Function: Normal Reflexes: Normal Skin: Dry, Normal Color, Warm Lymphatic: No Adenopathy Was a procedure done? Was a procedure done?: No Back Pain Differential Dx Differential Diagnosis: Fracture, Musculoskeletal Pain, Strain, Other X-Ray, Labs, Meds, VS Vital Signs Date Time Temp Pulse Resp B/P (MAP) Pulse Ox O2 Delivery O2 Flow Rate FiO2 10/25/24 09:26 100 16 95 Room Air 10/25/24 09:26 98.1 100 16 143/86 (105) 95 98.1 10/25/24 08:58 98.1 100 16 143/86 (105) 95 PATIENT: AVIS GRACIACT: [id number]: [id number] : 1960 LOC: ER ROOM / BED: / AGE / SEX: 64 / F ADM STATUS: REG ER SERVICE ORDERING PHYSICIAN: CHRISTOPH AZEVEDO NP PROCEDURE(s): RRIBS - R RIB XRAY REASON: possible fracture ORDER NUMBER(s): [id number], ACCESSION NUMBER(s): [id number] EXAMINATION: XY R RIB XRAY INDICATION: possible fracture COMPARISON: None TECHNIQUE: Frontal view of the chest and oblique views of the right ribs. FINDINGS: No focal consolidation, pleural effusion or significant pneumothorax. Normal cardiomediastinal silhouette. No displaced right rib fracture. IMPRESSION: 1. No acute cardiopulmonary disease. No displaced right rib fracture. ATED BY: CHATO ANDERSON MD DICTATED DATE/TIME: 10/25/24935 SIGNED BY: CHATO ANDERSON MD SIGNED DATE/TIME: 10/25/24935 CC: X-Ray, Labs, Meds, VS Comment History and physical exam consistent with musculoskeletal pain Supportive care advised (rest, ice, heat, NSAIDs, stretching exercises) Massage muscles with cold pack or ice for 20 minutes 4 times per day. Usually most useful if there is swelling during the first 48 hours Heating pad on the most painful area for 20 minutes to relieve muscle spasm Sleep and the most comfortable sleeping position (usually on the side with knees bent) Light stretching, no strenuous activity, avoid frequent bending, avoid carrying heavy objects Discussed possible benefits of yoga and acupuncture On reevaluation, patient had symptomatic improvement. Patient is stable for discharge at this time. External notes reviewed. Test results and diagnostic imaging interpreted. All diagnostic findings, discharge care, education and instructions provided Follow-up with PCP in 2 to 3 days Patient verbalized understanding and agreed to treatment plan Vital signs stable, afebrile, no acute distress noted Patient ambulatory with strong steady gait Advised to return precautions for any new or worsening symptoms, return to ER immediately for re-evaluation Patient is aware that the purpose of this visit was for an acute medical emergency requiring emergent stabilization. Chronic conditions, including malignancies have not been ruled out. Patient is instructed to follow up with PCP as directed and discharge instructions for continued care and workup. If unable to arrange follow-up, patient is to return to the emergency department for reassessment. Patient (parent or legal guardian if applicable) was given verbal and written discharge instructions and acknowledges understanding. Time of 1ST Reevaluation: 09:16 Reevaluation 1ST: Improved Patient Education/Counseling: Diagnosis, Treatment Family Education/Counseling: Diagnosis, Treatment Departure 1 Departure Time of Disposition: 10:35 Impression: Primary Impression: Blunt trauma of rib Qualified Codes: S29.8XXA - Other specified injuries of thorax, initial encounter Disposition: HOME / SELF CARE / HOMELESS Condition: Stable Discharged With: Self Critical Care Note Critical Care Time?: No Stability Stability form required: No Heart Score Heart Score: Heart Score Response (Comments) Value History N/A 0 EKG N/A 0 Age N/A 0 Risk Factors N/A 0 Troponin N/A 0 Total 0 CHRISTOPH AZEVEDO NP Oct 25, 2024 09:16
[2024-10-25 09:26] VITALS: BP 143/86; PULSE 100; RESP 16; TEMP 98.1; O2SAT 95
--- NOTE | 2024-10-25 09:39 | DVH ---
EXAMINATION: XY R RIB XRAY INDICATION: possible fracture COMPARISON: None TECHNIQUE: Frontal view of the chest and oblique views of the right ribs. FINDINGS: No focal consolidation, pleural effusion or significant pneumothorax. Normal cardiomediastinal silhou ette. No displaced right rib fracture. IMPRESSION: 1. No acute cardiopulmonary disease. No displaced right rib fracture.
[2024-10-25] MEDS: KETOROLAC TROMETH 30 MG/ML 1ML VIAL IM ONE (10:54)
== END 2024-10-25 11:02 | disposition home or self-care (01) ==
LOC: ER 08:47
DX: S29.8XXA Other specified injuries of thorax, initial encounter (principal); E11.9 Type 2 diabetes mellitus without complications; I10 Essential (primary) hypertension; E78.5 Hyperlipidemia, unspecified; Z87.891 Personal history of nicotine dependence; Z79.84 Long term (current) use of oral hypoglycemic drugs; Z86.73 Personal history of transient ischemic attack (TIA), and cerebral infarction without residual deficits; X58.XXXA Exposure to other specified factors, initial encounter; Y93.89 Activity, other specified; Y92.89 Other specified places as the place of occurrence of the external cause; Y99.8 Other external cause status
CPT/HCPCS: 71101; 96372; 99283; J1885

== ENCOUNTER 2024-11-15 15:21 | Inpatient (IN) | payer OTHER, MEDICAID ==
[~2024-11-15] VITALS: Ht 149.9 cm; Wt 49.5 kg
[2024-11-15] MEDS: SODIUM CHLORIDE 0.9% 1,000 ML IV ONE (15:45)
[2024-11-15] MEDS: DEXTROSE (50%) 50ML SYRG IV ONE (15:46)
[2024-11-15 15:48] VITALS: PULSE 88; RESP 24; O2SAT 99
[2024-11-15] MEDS: DEXTROSE 50% SYRINGE 50 ML IV ONE (15:52)
--- NOTE | 2024-11-15 15:56 | ED.PDOC ---
History of present illness HPI Comments 64 y/o F with PMHX of DM, HTN, and HLD presents to the ED for CC of hypoglycemia. Patient states, that she has been experiencing symptoms of dizziness, nausea, and weakness x3days with associated low blood sugar readings. Patient endorses on, taking 1000 units of Metformin bid. Patient's BS on the glucometer read at 64. Patient denies social history. Patient denies tremors, excessive urination, lightheadedness, or N/V/D. No other symptoms or modifying factors at this time. Chief Complaint: Hypoglycemia Time Seen by MD: 15:30 Primary Care Provider: BRINDA History of present illness: Nurses Notes, Medications, Allergies Allergies: Coded Allergies: NO KNOWN ALLERGIES (Unverified , 04/04/10) Home Meds Active Scripts Valacyclovir Hcl (Valtrex) 1 Gm Tab, 1 TAB PO TID, #21 TAB Prov:BRIAN FRANCO MD 03/04/23 Tramadol Hcl (Tramadol Hcl) 50 Mg Tab, 50 MG PO Q6HP PRN for 5 Days, #20 TAB Prov:BRIAN FRANCO MD 03/04/23 Reported Medications Glipizide (Glipizide) 5 Mg Tab, 1 TAB PO BID 01/07/21 Metformin Hydrochloride (Metformin Hcl) 1,000 Mg Tab, 1 TAB PO BID 01/07/21 Clopidogrel Bisulfate (CLOPIDOGREL) 75 Mg Tab, 1 TAB PO DAILYPRN 01/07/21 Dorzolamide HCl (Dorzolamide Hydrochloride) 2 % Radha 01/07/21 Latanoprost (LATANOPROST) 0.005 % Radha, 1 DROP RIGHTEYE 01/07/21 Ferrous Sulfate (Ferosul) 325 Mg Tab, 1 TAB PO Q8H 01/07/21 Alendronate Sodium (Alendronate Sodium) 70 Mg Tab, 1 TAB PO QWEEKLY 01/07/21 Brimonidine Tartrate (Brimonidine Tartrate) 0.2 % Radha, 1 DROP EACHEYE TID 01/07/21 Simvastatin (Simvastatin) 20 Mg Tab, 1 TAB PO 01/07/21 Enalapril Maleate (Enalapril Maleate) 20 Mg Tab, 1 TAB PO DAILYPRN 01/07/21 Information Source: Patient Mode of Arrival: Ambulatory Timing: Days Duration: Since onset Prehospital treatment: None [place]: None History of: Diabetes Modifying factors: Nothing Associated signs and symptoms: Nausea Past Medical History PAST MEDICAL HISTORY: CVA, DM, High Lipids, HTN 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 Pertinent CALCULUS TEACHER History Family History Family History (Other): Thyroid disease Social History Smoker: Quit Less Than 1 Year Alcohol: Denies ETOH Use Drugs: Marijuana, Methamphetamine Lives In: Home Constitutional: reports: weakness; denies: chills, diaphoresis, fatigue, fever, malaise, sweats, others EENTM: denies: blurred vision, double vision, ear bleeding, ear discharge, ear drainage, ear pain, ear ringing, eye pain, eye redness, hearing loss, mouth pain, mouth swelling, nasal discharge, nose bleeding, nose congestion, nose pain, photophobia, tearing, throat pain, throat swelling, voice changes, others Respiratory: denies: cough, hemoptysis, orthopnea, SOB at rest, shortness of breath, SOB with excertion, stridor, wheezing, others Cardiovascular: denies: chest pain, dizzy spells, diaphoresis, Dyspnea on exertion, edema, irregular heart beat, left arm pain, lightheadedness, palpitations, PND, syncope, others Gastrointestinal: reports: nausea; denies: abdomen distended, abdominal pain, blood streaked bowels, constipated, diarrhea, dysphagia, difficulty swallowing, hematemesis, melena, poor appetite, poor fluid intake, rectal bleeding, rectal pain, vomiting, others Genitourinary: denies: abnormal vagina bleeding, burning, dyspareunia, dysuria, flank pain, frequency, hematuria, incontinence, pain, , vagina discharge, urgency, others Neurological: reports: dizziness; denies: fainting, headache, left sided numbness, left sided weakness, numbness, paresthesia, pre-existing deficit, right sided numbness, right sided weakness, seizure, speech problems, tingling, tremors, weakness, others Musculoskeletal: denies: back pain, gout, joint pain, joint swelling, muscle pain, muscle stiffness, neck pain, others Integumetry: denies: bruises, change in color, change in hair/nails, dryness, laceration, lesions, lumps, rash, wounds, others Allergic/Immunocompromised: denies: Difficulty Healing, Frequent Infections, Hives, Itching, others Hematologic/Lymphatic: denies: anemia, blood clots, easy bleeding, easy bruising, swollen glands, others Endocrine: denies: excessive hunger, excessive sweating, excessive thirst, excessive urination, flushing, intolerance to cold, intolerance to heat, unexplained weight gain, unexplained weight loss, others Psychiatric: denies: anxiety, bipolar disorder, depression, hopeless, panic disorder, schizophrenia, sleepless, suicidal, others All Other Systems: Reviewed and Negative Physical Exam General Appearance: Moderate Distress HEENT: Normal ENT Inspection, Pharynx Normal, TMs Normal Neck: Full Range of Motion, Non-Tender, Normal, Normal Inspection Respiratory: Chest Non-Tender, Lungs Clear, No Accessory Muscle Use, No Respiratory Distress, Normal Breath Sounds Cardiovascular: No Edema, No JVD, No Murmur, No Gallop, Normal Peripheral Pulses, Regular Rate/Rhythm Breast Exam: Deferred Gastrointestinal: No Organomegaly, Non Tender, No Pulsatile Mass, Normal Bowel Sounds, Soft Genitalia: Deferred Pelvic: Deferred Rectal: Deferred Extremities: No calf tenderness, Normal capillary refill, Normal inspection, Normal range of motion, Non-tender, No pedal edema Musculoskeletal : Apperance: Normal Neurologic: Alert, stationary boiler fireman II-XII nml as Tested, No Motor Deficits, Normal Affect, Normal Mood, No Sensory Deficits Cerebellar Function: NOT DONE Reflexes: NOT DONE Skin: Dry, Normal Color, Warm Peripheral Pulses: 3+ Radial (R), 3+ Radial (L) Lymphatic: No Adenopathy Was a procedure done? Was a procedure done?: No Differential Diagnosis (DM) Differential Diagnosis: Hyperglycemia, Hypoglycemia, UTI X-Ray, Labs, Meds, VS Vital Signs Date Time Temp Pulse Resp B/P (MAP) Pulse Ox O2 Delivery O2 Flow Rate FiO2 11/15/24 16:08 85 18 112/64 (80) 98 11/15/24 15:48 97.5 88 24 97/59 (72) 99 97.5 11/15/24 15:27 97.4 94 20 96/47 (63) 100 100/53 (69) Lab Test 11/15/24 17:00 11/15/24 16:03 11/15/24 15:48 11/15/24 15:32 Range/Units Urine Color Pending Urine Clarity Pending Urine pH Pending Urine Specific [place] Pending Urine Protein Pending Urine Ketones Pending Urine Blood Pending Urine Nitrite Pending Urine Bilirubin Pending Urine Urobilinogen Pending Urine Leukocyte Esterase Pending Urine RBC Pending Urine Microscopic WBC Pending Urine Squamous Epithelial Cells Pending Urine Bacteria Pending Urine Glucose Pending POC Glucose 264 H 64 L 70-106 mg/dl White Blood Count 7.5 4.4-10.8 10^3/uL Red Blood Count 4.92 4.0-5.20 10^6/uL Hemoglobin 9.5 L 12.2-16.2 g/dL Hematocrit 31.5 L 36.0-46.0 % Mean Corpuscular Volume 64.0 L 80.0-100.0 fL Mean Corpuscular Hemoglobin 19.4 L 28.0-32.0 pg Mean Corpuscular Hemoglobin Concent 30.3 L 32.0-36.0 g/dL Red Cell Distribution Width 16.9 H 11.8-14.3 % Platelet Count 429 140-450 10^3/uL Mean Platelet Volume 8.1 6.9-10.8 fL Neutrophils (%) (Auto) 64.7 37.0-80.0 % Lymphocytes (%) (Auto) 23.6 10.0-50.0 % Monocytes (%) (Auto) 7.0 0.0-12.0 % Eosinophils (%) (Auto) 3.8 0.0-7.0 % Basophils (%) (Auto) 0.9 0.0-2.0 % Neutrophils # (Auto) 4.9 1.6-8.6 10 ^3/uL Lymphocytes # (Auto) 1.8 0.4-5.4 10 ^3/uL Monocytes # (Auto) 0.5 0-1.3 10 ^3/uL Eosinophils # (Auto) 0.3 0-0.8 10 ^3/uL Basophils # (Auto) 0.1 0-0.2 10 ^3/uL Nucleated Red Blood Cells 0.0 % Sodium Level 140 136-145 mmol/L Potassium Level 3.7 3.5-5.1 mmol/L Chloride Level 105 98-107 mmol/L Carbon Dioxide Level 25 20-31 mmol/L Anion Gap 10 5-15 Blood Urea Nitrogen 34 H 9-23 mg/dL Creatinine 1.35 H 0.550-1.02 mg/dL Glomerular Filtration Rate Calc 44 >90 mL/min BUN/Creatinine Ratio 25.2 H 10.0-20.0 Serum Glucose 73 L 74-106 mg/dL Calcium Level 10.3 8.7-10.4 mg/dL Test 11/15/24 15:31 Range/Units POC Glucose 67 L 70-106 mg/dl Current Medications Medications (Trade) Dose Ordered Sig/Emery Route Start Time Stop Time Status Last Admin Sodium Chloride 1,000 ml @ 1,000 mls/hr Q1H ONCE IV 11/15/24 15:45 11/15/24 16:44 DC 11/15/24 15:45 Dextrose 50 ml ONCE ONCE IV 11/15/24 15:45 11/15/24 15:46 DC 11/15/24 15:46 [place] [id number] Ph: [phone] DIAGNOSTIC IMAGING Diagnostic Imaging Report : [id number] Signed PATIENT: AVIS GRACIACT: [id number] UNIT: [id number] : 1960 LOC: ER ROOM / BED: / AGE / SEX: 64 / F ADM STATUS: REG ER SERVICE 1650 ORDERING PHYSICIAN: MARKIE CHACON MD PROCEDURE(s): HWOCT - HEAD WITHOUT CONTRAST REASON: dizzy ORDER NUMBER(s): [id number], ACCESSION NUMBER(s): [id number] EXAM: CT Head Without Intravenous Contrast CLINICAL INDICATION: dizzy TECHNIQUE: Axial computed tomography images of the head/brain without intravenous contrast. This CT exam was performed using one or more of the following dose reduction techniques: automated exposure control, adjustment of the mA and/or kV according to patient size, and/or use of iterative reconstr uction technique. RADIATION DOSE: CTDlvol= 50.8 mGy, DLP= 799.16 mGy-cm COMPARISON: HEAD WITHOUT CONTRAST on DOS: 03/06/21, HEAD WITHOUT CONTRAST on DOS: 01/11/21 FINDINGS: BRAIN AND EXTRA-AXIAL SPACES: Areas of decreased attenuation in the deep cerebral white matter are consistent with small vessel ischemic/degenerative changes. No acute intracranial hemorrhage, midline shift or mass effect. BONES/JOINTS: Unremarkable. No acute fracture. SOFT TISSUES: Unremarkable. SINUSES: Unremarkable as visualized. No acute sinusitis. MASTOID AIR CELLS: Unremarkable as visualized. No mastoid effusion. OTHER FINDINGS: . . IMPRESSION: 1. No acute intracranial hemorrhage, midline shift or mass effect. 2. Small vessel ischemic/degenerative changes. 3. If symptoms persist, further evaluation with MRI is recommended. 4. No significant change from the prior exam. ATED BY: AMY HOLM MD DICTATED DATE/TIME: 11/15/241709 SIGNED BY: AMY HOLM MD SIGNED DATE/TIME: 11/15/241709 CC: Patient alert. Complaining of feeling weak dizzy. Blood sugar low. Was given dextrose. Blood pressure low. Establish intravenous access. Was given fluids. BUN creatinine elevated. Possible dehydration. Responding to fluids. Anemia. Explained to the patient. She does answer questions. Moving all extremities. Continue cardiac monitoring. Time of 1ST Reevaluation: 16:00 Reevaluation 1ST: Unchanged Patient Education/Counseling: Diagnosis, Treatment Family Education/Counseling: No Family Present Departure 1 Departure Time of Disposition: 16:45 Impression: Primary Impression: Hypoglycemia Additional Impressions: ATN (acute tubular necrosis) Hypotension Qualified Codes: I95.9 - Hypotension, unspecified Disposition: ADMITTED INPATIENT Admit to: Med Surg Condition: Guarded Critical Care Note Critical Care Time?: Yes (90 min-critical care time only) Critical care comment: Hypotension hypoglycemia Stability Stability form required: No Heart Score Heart Score: Heart Score Response (Comments) Value History Slightly Suspicious 0 EKG Normal 0 Age >65 2 Risk Factors >3 or Hx ASHD 2 Troponin Normal limit 0 Total 4 I personally scribed for MARKIE CHACON MD ([email or web address]) on 11/15/24 at 15:56. Electronically submitted by Iraida Hamilton ([email or web address] I personally scribed for MARKIE CHACON MD ([email or web address]) on 11/15/24 at 16:07. Electronically submitted by Iraida Hamilton ([email or web address]). I personally scribed for MARKIE CHACON MD ([email or web address]) on 11/15/24 at 17:38. Electronically submitted by Iraida Hamilton ([email or web address]). I personally scribed for MARKIE CHACON MD ([email or web address]) on 11/15/24 at 17:39. Electronically submitted by Iraida Hamilton ([email or web address]). I personally scribed for MARKIE CHACON MD ([email or web address]) on 11/15/24 at 17:40. Electronically submitted by Iraida Hamilton [email or web address]). MARKIE CHACON MD Nov 15, 2024 15:56
[2024-11-15 16:08] LABS: Basophils # (auto) 0.1 10 ^3/uL (0-0.2); Basophils % (auto) 0.9 % (0.0-2.0); Hematocrit 31.5 % (36.0-46.0); Monocytes # (auto) 0.5 10 ^3/uL (0-1.3); Red Blood Cells 4.92 10^6/uL (4.0-5.20)
[2024-11-15 16:10] LABS: Eosinophils # (auto) 0.3 10 ^3/uL (0-0.8); Eosinophils % (auto) 3.8 % (0.0-7.0); Hemoglobin 9.5 g/dL (12.2-16.2); Lymphocytes # (auto) 1.8 10 ^3/uL (0.4-5.4); Lymphocytes % (auto) 23.6 % (10.0-50.0); Mean Corpuscular Hemoglobin 19.4 pg (28.0-32.0); Mean Corpuscular Hgb Conc. 30.3 g/dL (32.0-36.0); Neutrophils # (auto) 4.9 10 ^3/uL (1.6-8.6); Neutrophils % (auto) 64.7 % (37.0-80.0); Platelet Count (auto) 429 10^3/uL (140-450); Red Cell Distribution Width 16.9 % (11.8-14.3); White Blood Cell 7.5 10^3/uL (4.4-10.8)
[2024-11-15 16:20] LABS: Chloride 105 mmol/L (98-107); Potassium 3.7 mmol/L (3.5-5.1); Sodium 140 mmol/L (136-145)
[2024-11-15 16:21] LABS: Anion Gap 10 (5-15); Carbon Dioxide 25 mmol/L (20-31)
[2024-11-15 16:22] LABS: Calcium 10.3 mg/dL (8.7-10.4)
[2024-11-15 16:27] LABS: BUN/Creatinine Ratio 25.2 (10.0-20.0); Blood Urea Nitrogen 34 mg/dL (9-23); Glucose 73 mg/dL (74-106)
--- NOTE | 2024-11-15 17:13 | DVH ---
EXAM: CT Head Without Intravenous Contrast CLINICAL INDICATION: dizzy TECHNIQUE: Axial computed tomography images of the head/brain without intravenous contrast. This CT exam was performed using one or more of the following dose reduction techniques: automated exposure control, adjustment of the mA and/or kV according to patient size, and/or use of iterative reconstru ction technique. RADIATION DOSE: CTDlvol= 50.8 mGy, DLP= 799.16 mGy-cm COMPARISON: HEAD WITHOUT CONTRAST on DOS: 03/06/21, HEAD WITHOUT CONTRAST on DOS: 01/11/21 FINDINGS: BRAIN AND EXTRA-AXIAL SPACES: Areas of decreased attenuation in the deep cerebral white matter are c onsistent with small vessel ischemic/degenerative changes. No acute intracranial hemorrhage, midline shift or mass effect. BONES/JOINTS: Unremarkable. No acute fracture. SOFT TISSUES: Unremarkable. SINUSES: Unremarkable as visualized. No acute sinusitis. MASTOID AIR CELLS: Unremarkable as visualized. No mastoid effusion. OTHER FINDINGS: . . IMPRESSION: 1. No acute intracranial hemorrhage, midline shift or mass effect. 2. Small vessel ischemic/degenerative changes. 3. If symptoms persist, further evaluation with MRI is recommended. 4. No significant change from the prior exam.
[2024-11-15 17:31] LABS: Urine Bacteria None Seen /hpf (None Seen)
[2024-11-15 17:48] LABS: Urine Blood Negative /uL (Negative); Urine Clarity Clear (Clear); Urine Color Yellow (Yellow); Urine Hyaline Cast FEW /lpf (0 - 2); Urine Protein, UAD Negative (Negative); Urine Squamous Epithelial Cell None Seen /hpf (<5); Urine Urobilinogen Normal (Negative); Urine WBC 28 /HPF (0-5); Urine pH 5.5 (5.0-9.0)
[2024-11-15] MEDS ORDERED: DEXTROSE (50%) 50ML SYRG IV PRN (19:15)
[2024-11-15] MEDS ORDERED: ACETAMINOPHEN 325 MG TAB PO PRN (19:15)
[2024-11-15] MEDS ORDERED: ONDANSETRON HCL 4 MG/2 ML VIAL IV PRN (19:15)
[2024-11-15 20:00] VITALS: PULSE 96; RESP 22; O2SAT 96
[2024-11-15] MEDS: ACCU-CHEK COMFORT CURVE STRIP VI SCH (21:15)
[2024-11-15] MEDS: cefTRIAXone 1GM/50ML D5W 50 ML IV ONE (21:21)
[2024-11-15] MEDS: InsuLIN REG 1unit/0.01ml Soln (100units/ml) SC SCH (21:22)
[2024-11-15 21:46] VITALS: BP 102/58; PULSE 92; RESP 20; TEMP 98.3; O2SAT 99
[2024-11-15] MEDS: ATORVASTATIN 20 MG TAB PO SCH (23:34)
[2024-11-16] VITALS (8 sets, daily range): BP systolic 98–141; BP diastolic 54–74; PULSE 88–97; RESP 16–20; TEMP 97.6–98.7; O2SAT 97–100
--- NOTE | 2024-11-16 04:02 | DVHHP2 ---
History of Present Illness Reason for Visit: Generalized weakness History of Present Illness 64-year-old female presents for evaluation of generalized weakness. Presents at the bedside patient has been acting progressively more lethargic over the past three days. He states her blood sugar levels dropped as low as 60. Patient complains of mild dizziness as well. Denies dysuria or hematuria. No abdominal pain. Denies cardiac or respiratory symptoms. Past Medical History Hypertension, dyslipidemia, diabetes mellitus and CVA Past Surgical History Family History Noncontributory Smoke: No ALCOHOL: none Drugs: None Lives: with Family Review of Systems Review of Systems Review of systems are currently negative otherwise addressed in HPI. Allergies: Coded Allergies: NO KNOWN ALLERGIES (Unverified , 04/04/10) Medications Current Medications Medications Dose Ordered Sig/Emery Route Start Time Stop Time Status Last Admin Dose Admin Clopidogrel Bisulfate 75 mg DAILY PO 11/16/24 10:00 Atorvastatin Calcium 20 mg HS PO 11/15/24 22:00 11/15/24 23:34 20 MG Enalapril Maleate 20 mg DAILY PO 11/16/24 10:00 Ceftriaxone Sodium 50 ml @ 100 mls/hr DAILY@09 IV 11/16/24 09:00 Diagnostic Test (Pha) 1 strip IQ4HR 11/15/24 20:00 11/16/24 03:14 1 STRIP Insulin Human Regular IQ4HR SC 11/15/24 20:00 11/16/24 03:14 2 UNITS Dextrose 50 ml UD PRN IV 11/15/24 19:15 Ondansetron HCl 4 mg Q4HP PRN IV 11/15/24 19:15 Acetaminophen 650 mg Q6HP PRN PO 11/15/24 19:15 Exam Vital Signs Vital Signs Date Time Temp Pulse Resp B/P (MAP) Pulse Ox O2 Delivery O2 Flow Rate FiO2 11/16/24 01:00 98.7 97 18 141/74 (96) 97 98.7 11/15/24 20:00 Room Air* 0 21 Exam Gen: 64-year-old female in mild distress Skin: Warm, dry, normal color and texture, no rash. HEENT: Normocephalic atraumatic, mucous membranes moist and pink. Neck: Cervical and supraclavicular nodes normal without enlargement, trachea is midline, thyroid gland is normal without masses. Pulmonary: Clear to auscultation and percussion bilaterally. Cardiac: Regular rate and rhythm. No murmur Abdomen: Soft, nontender, nondistended, bowel sounds present all 4 quadrants, no guarding, no rigidity, no organomegaly. Extremities: No cyanosis, clubbing, no edema Neuro: Cranial nerves II through XII grossly intact, normal affect and speech, no focal motor deficits. Labs/Xrays : 1960 LOC: ER ROOM / BED: / AGE / SEX: 64 / F ADM STATUS: REG ER SERVICE 1650 ORDERING PHYSICIAN: MAKRIE CHACON MD PROCEDURE(s): HWOCT - HEAD WITHOUT CONTRAST REASON: dizzy ORDER NUMBER(s): [id number], ACCESSION NUMBER(s): [id number] EXAM: CT Head Without Intravenous Contrast CLINICAL INDICATION: dizzy TECHNIQUE: Axial computed tomography images of the head/brain without intravenous contrast. This CT exam was performed using one or more of the following dose reduction techniques: automated exposure control, adjustment of the mA and/or kV according to patient size, and/or use of iterative reconstru ction technique. RADIATION DOSE: CTDlvol= 50.8 mGy, DLP= 799.16 mGy-cm COMPARISON: HEAD WITHOUT CONTRAST on DOS: 03/06/21, HEAD WITHOUT CONTRAST on DOS: 01/11/21 FINDINGS: BRAIN AND EXTRA-AXIAL SPACES: Areas of decreased attenuation in the deep cerebral white matter are consistent with small vessel ischemic/degenerative changes. No acute intracranial hemorrhage, midline shift or mass effect. BONES/JOINTS: Unremarkable. No acute fracture. SOFT TISSUES: Unremarkable. SINUSES: Unremarkable as visualized. No acute sinusitis. MASTOID AIR CELLS: Unremarkable as visualized. No mastoid effusion. OTHER FINDINGS: . . IMPRESSION: 1. No acute intracranial hemorrhage, midline shift or mass effect. 2. Small vessel ischemic/degenerative changes. 3. If symptoms persist, further evaluation with MRI is recommended. 4. No significant change from the prior exam. Labs Test 11/16/24 03:11 11/15/24 17:00 11/15/24 15:48 Range/Units POC Glucose 138 H 70-106 mg/dl Urine Color Yellow Yellow Urine Clarity Clear Clear Urine pH 5.5 5.0-9.0 Urine Specific [place] 1.020 1.001-1.035 Urine Protein Negative Negative Urine Ketones Trace Negative Urine Blood Negative Negative /uL Urine Nitrite Negative Negative Urine Bilirubin Negative Negative Urine Urobilinogen Normal Negative mg/dL Urine Leukocyte Esterase 2+ Negative /uL Urine RBC 1 0 - 4 /hpf Urine Microscopic WBC 28 H 0-5 /HPF Urine Squamous Epithelial Cells None seen <5 /hpf Urine Bacteria None seen None Seen /hpf Urine Hyaline Casts Few 0 - 2 /lpf Urine Glucose 3+ H Normal mg/dL White Blood Count 7.5 4.4-10.8 10^3/uL Red Blood Count 4.92 4.0-5.20 10^6/uL Hemoglobin 9.5 L 12.2-16.2 g/dL Hematocrit 31.5 L 36.0-46.0 % Mean Corpuscular Volume 64.0 L 80.0-100.0 fL Mean Corpuscular Hemoglobin 19.4 L 28.0-32.0 pg Mean Corpuscular Hemoglobin Concent 30.3 L 32.0-36.0 g/dL Red Cell Distribution Width 16.9 H 11.8-14.3 % Platelet Count 429 140-450 10^3/uL Mean Platelet Volume 8.1 6.9-10.8 fL Neutrophils (%) (Auto) 64.7 37.0-80.0 % Lymphocytes (%) (Auto) 23.6 10.0-50.0 % Monocytes (%) (Auto) 7.0 0.0-12.0 % Eosinophils (%) (Auto) 3.8 0.0-7.0 % Basophils (%) (Auto) 0.9 0.0-2.0 % Neutrophils # (Auto) 4.9 1.6-8.6 10 ^3/uL Lymphocytes # (Auto) 1.8 0.4-5.4 10 ^3/uL Monocytes # (Auto) 0.5 0-1.3 10 ^3/uL Eosinophils # (Auto) 0.3 0-0.8 10 ^3/uL Basophils # (Auto) 0.1 0-0.2 10 ^3/uL Nucleated Red Blood Cells 0.0 % Sodium Level 140 136-145 mmol/L Potassium Level 3.7 3.5-5.1 mmol/L Chloride Level 105 98-107 mmol/L Carbon Dioxide Level 25 20-31 mmol/L Anion Gap 10 5-15 Blood Urea Nitrogen 34 H 9-23 mg/dL Creatinine 1.35 H 0.550-1.02 mg/dL Glomerular Filtration Rate Calc 44 >90 mL/min BUN/Creatinine Ratio 25.2 H 10.0-20.0 Serum Glucose 73 L 74-106 mg/dL Calcium Level 10.3 8.7-10.4 mg/dL Assessment/Plan Assessment/Plan Metabolic encephalopathy Hypoglycemia Urinary tract infection Acute kidney injury Diabetes mellitus Hypertension Plan Admit the patient to Med surge to the hospitalist Q.4 hour Accu-Cheks with mild coverage Rocephin Urine bacterial culture pending Resume home medications Continue treatment per orders. Plan discussed with: Patient My Orders Orders - MARIA ELENA MAYER Procedure Category Date Status Time Admit ADMIT 11/15/24 Transmitted 18:56 Consistent DIET 11/16/24 Transmitted Carb(Ccho)Diabetes Breakfast Clopidogrel Bisulfate PHA 11/16/24 In Process (Plavix) 10:00 Atorvastatin (Lipitor) PHA 11/15/24 In Process 22:00 Enalapril Tablet PHA 11/16/24 In Process (Vasotec Tablet) 10:00 Basic Metabolic Panel LAB 11/16/24 Logged 04:00 Ceftriaxone 1gm/50ml PHA 11/16/24 In Process D5w (Rocephin) 09:00 Urine Bacterial RAMY 11/15/24 In Process Culture 19:04 Glucose Blood PHA 11/15/24 In Process (Accu-Chek Comfort 20:00 Insulin R (Human) PHA 11/15/24 In Process (Insulin R) 20:00 Dextrose 50% Syringe PHA 11/15/24 In Process 19:15 Ondansetron Hcl PHA 11/15/24 In Process (Zofran) 19:15 Complete Blood Count LAB 11/16/24 Logged 04:00 Condition: Stable ANA 11/15/24 In Process 19:04 Acetaminophen Tablet PHA 11/15/24 In Process (Tylenol Tablet) 19:15 Bedrest With Bathroom ANA 11/15/24 In Process Privileg 19:04 Date of Service: Nov 15, 2024 Billing Provider: MARIA ELENA MAYER Common Visit Codes: [id number] INP/OBS CARE (HIGH) MARIA ELENA MAYER Nov 16, 2024 04:02
[2024-11-16 06:01] LABS: Basophils # (auto) 0.1 10 ^3/uL (0-0.2); Basophils % (auto) 0.9 % (0.0-2.0); Eosinophils # (auto) 0.3 10 ^3/uL (0-0.8); Eosinophils % (auto) 4.8 % (0.0-7.0); Hematocrit 26.5 % (36.0-46.0); Hemoglobin 8.1 g/dL (12.2-16.2); Lymphocytes # (auto) 1.3 10 ^3/uL (0.4-5.4); Lymphocytes % (auto) 20.9 % (10.0-50.0); Mean Corpuscular Hemoglobin 19.6 pg (28.0-32.0); Mean Corpuscular Hgb Conc. 30.6 g/dL (32.0-36.0); Mean Corpuscular Volume 64.1 fL (80.0-100.0); Monocytes # (auto) 0.5 10 ^3/uL (0-1.3); Monocytes % (auto) 7.3 % (0.0-12.0); Neutrophils # (auto) 4.3 10 ^3/uL (1.6-8.6); Neutrophils % (auto) 66.1 % (37.0-80.0); Platelet Count (auto) 321 10^3/uL (140-450); Red Blood Cells 4.14 10^6/uL (4.0-5.20); Red Cell Distribution Width 16.8 % (11.8-14.3); White Blood Cell 6.4 10^3/uL (4.4-10.8)
[2024-11-16 06:17] LABS: Potassium 4.2 mmol/L (3.5-5.1); Sodium 140 mmol/L (136-145)
[2024-11-16 06:18] LABS: Anion Gap 7 (5-15); Carbon Dioxide 22 mmol/L (20-31)
[2024-11-16 06:19] LABS: Calcium 9.4 mg/dL (8.7-10.4)
[2024-11-16 06:20] LABS: Chloride 111 mmol/L (98-107)
[2024-11-16 06:23] LABS: Glucose 101 mg/dL (74-106)
[2024-11-16 06:24] LABS: BUN/Creatinine Ratio 28.8 (10.0-20.0)
[2024-11-16 06:27] LABS: Blood Urea Nitrogen 30 mg/dL (9-23)
[2024-11-16 06:45] LABS: Hypochromia Marked; Ovalocytes FEW; Platelet Estimate Adequate
[2024-11-16 06:46] LABS: Large Platelets FEW
[2024-11-16] MEDS: CLOPIDOGREL BISULFATE 75 MG TAB PO SCH (09:54)
[2024-11-16] MEDS: cefTRIAXone 1GM/50ML D5W 50 ML IV SCH (09:54)
[2024-11-16] MEDS: ENALAPRIL MALEATE 10 MG TAB PO SCH (09:54)
--- NOTE | 2024-11-16 14:49 | DVHPN2 ---
Reviewed: Care Plan, H&P, Labs, Medications, Previous Orders, Radiology Changes from previous H/P or p: No Changes Objective Vitals Vital Signs Date Time Temp Pulse Resp B/P (MAP) Pulse Ox O2 Delivery O2 Flow Rate FiO2 11/16/24 13:00 98.7 92 16 105/54 (71) 97 98.7 11/16/24 08:30 Room Air* 0 21 Intake/Output Intake and Output 11/16/24 07:00 Intake Total 1200 ml Balance 1200 ml Intake Oral 200 ml IV Total 1000 ml # Voids 1 # Bowel Movements 1 Medications Current Medications Medications Dose Ordered Sig/Emery Route Start Time Stop Time Status Last Admin Dose Admin Clopidogrel Bisulfate 75 mg DAILY PO 11/16/24 10:00 11/16/24 09:54 75 MG Atorvastatin Calcium 20 mg HS PO 11/15/24 22:00 11/15/24 23:34 20 MG Enalapril Maleate 20 mg DAILY PO 11/16/24 10:00 11/16/24 09:54 20 MG Ceftriaxone Sodium 50 ml @ 100 mls/hr DAILY@09 IV 11/16/24 09:00 11/16/24 09:54 100 MLS/HR Diagnostic Test (Pha) 1 strip IQ4HR 11/15/24 20:00 11/16/24 11:50 1 STRIP Insulin Human Regular IQ4HR SC 11/15/24 20:00 11/16/24 12:02 3 UNITS Dextrose 50 ml UD PRN IV 11/15/24 19:15 Ondansetron HCl 4 mg Q4HP PRN IV 11/15/24 19:15 Acetaminophen 650 mg Q6HP PRN PO 11/15/24 19:15 Laboratory Results Laboratory Tests 11/16/24 05:46 Chemistry Test 11/15/24 15:48 11/16/24 05:46 Calcium Level 10.3 mg/dL (8.7-10.4) 9.4 mg/dL (8.7-10.4) Urinalysis Test 11/15/24 17:00 Urine Color Yellow (Yellow) Urine Clarity Clear (Clear) Urine pH 5.5 (5.0-9.0) Urine Specific [place] 1.020 (1.001-1.035) Urine Protein Negative (Negative) Urine Ketones Trace (Negative) Urine Blood Negative /uL (Negative) Urine Nitrite Negative (Negative) Urine Bilirubin Negative (Negative) Urine Urobilinogen Normal mg/dL (Negative) Urine Leukocyte Esterase 2+ /uL (Negative) Urine RBC 1 /hpf (0 - 4) Urine Microscopic WBC 28 /HPF (0-5) H Urine Squamous Epithelial Cells None seen /hpf (<5) Urine Bacteria None seen /hpf (None Seen) Urine Hyaline Casts Few /lpf (0 - 2) Urine Glucose 3+ mg/dL (Normal) H Microbiology Microbiology Date/Time Source Procedure Growth Status 11/15/24 17:06 Voided Urine Urine Culture - Preliminary Resulted Labs and/or images reviewed: Labs reviewed by me, Image(s) reviewed by me Assessment/Plan Assessment/Plan Sepsis secondary to urinary tract infection: Blood cultures urine cultures Rocephin Hypotension Hypercholesterolemia Diabetes History of CVA Anemia hemoglobin 8.1: GI consult for Dr. Pat Woodward stool for occult blood PCP Plan discussed with: Patient Date of Service: Nov 16, 2024 Billing Provider: GORDY PERALTA MD Common Visit Codes: [id number] INP/OBS CARE(HIGH) GORDY PERALTA MD Nov 16, 2024 14:49
[2024-11-16] MEDS: GASTROGRAFIN 30 ML SOL ONE (16:54)
[2024-11-16 17:09] LABS: Alanine Aminotransferase 11 U/L (7-40); Albumin 4.3 g/dL (3.2-4.8); Alkaline Phosphatase 98 U/L (46-116); Aspartate Aminotransferase 20 U/L (13-40); Total Protein 6.9 g/dL (5.7-8.2)
[2024-11-16 17:10] LABS: Bilirubin, Direct < 0.1 mg/dL (<0.3); Bilirubin, Total < 0.2 mg/dL (0.2-1.0)
[2024-11-16] MEDS ORDERED: hydrALAZINE HCL 20 MG/ML VL IV ONE (17:30)
--- NOTE | 2024-11-16 19:54 | DVH ---
Exam: CT CT AB PEL WITH ORAL CON ONLY History: GI doctor's request Comparison Study: None available at time of dictation. Technique: Multidetector CT of the abdomen and pelvis was performed without contrast. Axial, coronal and sagittal multiplanar reformats were performed by the technologist on a separate workstation. Radiation Dose Information: CT Dose: CTDI volume is 7.76 mGy. Dose-length product is 365.09 mGy*cm Findings: Lung bases are clear. Partially visualized heart is unremarkable. Liver, spleen, pancreas right adrenal gland are unremarkable. 2 cm left adrenal nodule measuring up t o -9 Hounsfield units which may represent a lipid rich adenoma/ myelolipoma. The gallbladder is decom pressed. Mild nonspecific bilateral perinephric fat stranding. Punctate nonobstructing right renal calculus. L imited evaluation of the urinary bladder due to inadequate distention. Partially calcified 2 cm left- sided uterine fibroid. Mild distal esophageal wall thickening. Stomach is distended and filled with hyperdense ingested mate rial. Mild wall thickening of the proximal duodenum. The remainder of the small bowel loops are unrem arkable. Contrast is noted within some of the small bowel loops with contrast noted within the large bowel extending to the rectum. Appendix is unremarkable. There is short segmental wall thickening of the descending colon. Sigmoid diverticulosis without diverticulitis. Mild distal rectal wall thickeni ng. No evidence of intraperitoneal free air or free fluid. No evidence of aortic aneurysm. Mild atherosclerotic calcification of the aorta. No significant lymphadenopathy. Small fat containing umbilical hernia. Compression fracture of the superior endplate of L2 with about 20% loss of superior vertebral body height of unknown chronicity, likely chronic. 4 mm retrolisthesi s of L2 on L3. No destructive osseous lesions noted. Sclerotic focus of the right acetabulum which ma y represent a bone island with a blastic lesion not excluded. IMPRESSION: There is contrast passage from the stomach to the small bowel loops and colon with contrast noted wit hin the rectum. No evidence of bowel obstruction. Mild distention of the stomach filled with hypodense ingested material. Mild wall thickening of the distal esophagus and proximal duodenum which may be due to inadequate dis tention/ esophagitis and duodenitis respectively. Segmental mild wall thickening of the descending colon which may be from peristalsis with neoplasm no t excluded. Sigmoid diverticulosis without diverticulitis. Wall thickening of the distal rectum which may be due to inadequate distention/neoplasm. Punctate nonobstructing right renal calculus. Fibroid uterus. 2 cm left adrenal lipid rich adenoma/ myelolipoma.
--- NOTE | 2024-11-16 21:04 | DVHINCON2 ---
Date of service: Nov 16, 2024 Referring Physician Guerrero Coyne Reason for Consultation Anemia History of Present Illness 64-year-old female presents for evaluation of generalized weakness. Presents at the bedside patient has been acting progressively more lethargic over the past three days. He states her blood sugar levels dropped as low as 60. Patient complains of mild dizziness as well. Denies dysuria or hematuria. No abdominal pain. Denies cardiac or respiratory symptoms. Patient thinks she may have had some dark-colored stools. Patient was noted to have some microcytic anemia with a drop in hemoglobin hematocrit. She has never had a prior endoscopy. She had a colonoscopy with a gastro group Dr Atkinson. This was several years ago which she reported was negative and she is not due for another one for a couple of years Patient has a history of anemia and has been on iron pills. Patient also was on Plavix. Patient has not had any GI imaging at our hospital since 2009. She was recently seen in our ER for a right rib contusion. I added a liver profile and ammonia level to her labs this morning and they were normal Past Medical History Past Medical History Hypertension, dyslipidemia, diabetes mellitus and CVA Past Surgical History Past Surgical History Family History: Cancer G8 FATHER Cancer of colon G8 FATHER Family history: Cardiovascular disease Family history: Hypertension Allergies: Coded Allergies: NO KNOWN ALLERGIES (Unverified , 04/04/10) Home Meds Reported Medications Glipizide (Glipizide) 5 Mg Tab, 1 TAB PO BID 01/07/21 Metformin Hydrochloride (Metformin Hcl) 1,000 Mg Tab, 1 TAB PO BID 01/07/21 Clopidogrel Bisulfate (CLOPIDOGREL) 75 Mg Tab, 1 TAB PO DAILYPRN 01/07/21 Dorzolamide HCl (Dorzolamide Hydrochloride) 2 % Radha 01/07/21 Latanoprost (LATANOPROST) 0.005 % Radha, 1 DROP RIGHTEYE 01/07/21 Ferrous Sulfate (Ferosul) 325 Mg Tab, 1 TAB PO Q8H 01/07/21 Alendronate Sodium (Alendronate Sodium) 70 Mg Tab, 1 TAB PO QWEEKLY 01/07/21 Brimonidine Tartrate (Brimonidine Tartrate) 0.2 % Radha, 1 DROP EACHEYE TID 01/07/21 Simvastatin (Simvastatin) 20 Mg Tab, 1 TAB PO 01/07/21 Enalapril Maleate (Enalapril Maleate) 20 Mg Tab, 1 TAB PO DAILYPRN 01/07/21 Current Medications Current Medications Medications (Trade) Dose Ordered Sig/Emery Route PRN Reason Start Time Stop Time Status Last Admin Clopidogrel Bisulfate (Plavix) 75 mg DAILY PO 11/16/24 10:00 11/16/24 09:54 Atorvastatin Calcium (Lipitor) 20 mg HS PO 11/15/24 22:00 11/15/24 23:34 Enalapril Maleate (Vasotec Tablet) 20 mg DAILY PO 11/16/24 10:00 11/16/24 09:54 Ceftriaxone Sodium 50 ml @ 100 mls/hr DAILY@09 IV 11/16/24 09:00 11/16/24 09:54 Vital Signs Vital Signs Date Time Temp Pulse Resp B/P (MAP) Pulse Ox O2 Delivery O2 Flow Rate FiO2 11/16/24 17:00 97.8 89 19 133/62 (85) 98 97.8 11/16/24 08:30 Room Air* 0 21 Physical Exam Gen: 64-year-old female in no distress Skin: Warm, dry, normal color and texture, no rash. HEENT: Normocephalic atraumatic, mucous membranes moist and pink. Neck: Cervical and supraclavicular nodes normal without enlargement, trachea is midline, thyroid gland is normal without masses. Pulmonary: Clear to auscultation and percussion bilaterally. Cardiac: Regular rate and rhythm. No murmur Abdomen: Soft, nontender, nondistended, bowel sounds present all 4 quadrants, no guarding, no rigidity, no organomegaly. Extremities: No cyanosis, clubbing, no edema Neuro: Cranial nerves II through XII grossly intact, normal affect and speech, no focal motor deficits. Labs/Diagnostic Data Labs Test 11/16/24 16:42 11/16/24 15:46 11/16/24 15:34 11/16/24 05:46 Range/Units Ammonia 18 11-32 umol/L POC Glucose 114 H 70-106 mg/dl Total Bilirubin < 0.2 L 0.2-1.0 mg/dL Direct Bilirubin < 0.1 <0.3 mg/dL Aspartate Amino Transferase (AST) 20 13-40 U/L Alanine Aminotransferase (ALT) 11 7-40 U/L Alkaline Phosphatase 98 46-116 U/L Total Protein 6.9 5.7-8.2 g/dL Albumin 4.3 3.2-4.8 g/dL White Blood Count 6.4 4.4-10.8 10^3/uL Red Blood Count 4.14 4.0-5.20 10^6/uL Hemoglobin 8.1 L 12.2-16.2 g/dL Hematocrit 26.5 #L 36.0-46.0 % Mean Corpuscular Volume 64.1 L 80.0-100.0 fL Mean Corpuscular Hemoglobin 19.6 L 28.0-32.0 pg Mean Corpuscular Hemoglobin Concent 30.6 L 32.0-36.0 g/dL Red Cell Distribution Width 16.8 H 11.8-14.3 % Platelet Count 321 140-450 10^3/uL Mean Platelet Volume 7.7 6.9-10.8 fL Neutrophils (%) (Auto) 66.1 37.0-80.0 % Lymphocytes (%) (Auto) 20.9 10.0-50.0 % Monocytes (%) (Auto) 7.3 0.0-12.0 % Eosinophils (%) (Auto) 4.8 0.0-7.0 % Basophils (%) (Auto) 0.9 0.0-2.0 % Neutrophils # (Auto) 4.3 1.6-8.6 10 ^3/uL Lymphocytes # (Auto) 1.3 0.4-5.4 10 ^3/uL Monocytes # (Auto) 0.5 0-1.3 10 ^3/uL Eosinophils # (Auto) 0.3 0-0.8 10 ^3/uL Basophils # (Auto) 0.1 0-0.2 10 ^3/uL Nucleated Red Blood Cells 0.0 % Platelet Estimate Adequate Large Platelets Few Hypochromasia (manual) Marked Poikilocytosis (manual) Slight Microcytosis Marked Ovalocytes Few Schistocytes Few Sodium Level 140 136-145 mmol/L Potassium Level 4.2 3.5-5.1 mmol/L Chloride Level 111 H 98-107 mmol/L Carbon Dioxide Level 22 20-31 mmol/L Anion Gap 7 5-15 Blood Urea Nitrogen 30 H 9-23 mg/dL Creatinine 1.04 H 0.550-1.02 mg/dL Glomerular Filtration Rate Calc 60 >90 mL/min BUN/Creatinine Ratio 28.8 H 10.0-20.0 Serum Glucose 101 74-106 mg/dL Calcium Level 9.4 8.7-10.4 mg/dL Test 11/15/24 17:00 Range/Units Urine Color Yellow Yellow Urine Clarity Clear Clear Urine pH 5.5 5.0-9.0 Urine Specific [place] 1.020 1.001-1.035 Urine Protein Negative Negative Urine Ketones Trace Negative Urine Blood Negative Negative /uL Urine Nitrite Negative Negative Urine Bilirubin Negative Negative Urine Urobilinogen Normal Negative mg/dL Urine Leukocyte Esterase 2+ Negative /uL Urine RBC 1 0 - 4 /hpf Urine Microscopic WBC 28 H 0-5 /HPF Urine Squamous Epithelial Cells None seen <5 /hpf Urine Bacteria None seen None Seen /hpf Urine Hyaline Casts Few 0 - 2 /lpf Urine Glucose 3+ H Normal mg/dL Microbiology Date/Time Source Procedure Growth Status 11/15/24 17:06 Voided Urine Urine Culture - Preliminary Resulted ABD PELVIC CT IMPRESSION: There is contrast passage from the stomach to the small bowel loops and colon with contrast noted within the rectum. No evidence of bowel obstruction. Mild distention of the stomach filled with hypodense ingested material. Mild wall thickening of the distal esophagus and proximal duodenum which may be due to inadequate distention/ esophagitis and duodenitis respectively. Segmental mild wall thickening of the descending colon which may be from peristalsis with neoplasm not excluded. Sigmoid diverticulosis without div erticulitis. Wall thickening of the distal rectum which may be due to inadequate distention/neoplasm. Punctate nonobstructing right renal calculus. Fibroid uterus. 2 cm left adrenal lipid rich adenoma/ myelolipoma. Problems(with codes): (1) Iron deficiency anemia (2) Low hemoglobin and low hematocrit (3) Blunt trauma of rib (4) Polysubstance abuse Plan/Recommendation PLAN Advance diet as tolerated NPO after clear liquid breakfast tomorrow Schedule endoscopy rule out peptic ulcer disease rule out GERD rule out esophagitis Patient also has been advised to follow up in my office as an outpatient to discuss elective colonoscopy Monitor labs and check CEA level Transfused 1 unit PRBC if hemoglobin drops below seven Plan discussed with: Patient, Other (Mother and nurse) LUCIEN DO MD Nov 16, 2024 21:03
[2024-11-17] VITALS (9 sets, daily range): BP systolic 108–152; BP diastolic 61–75; PULSE 61–98; RESP 14–22; TEMP 98–98.8; O2SAT 94–100
[2024-11-17 07:21] LABS: Basophils # (auto) 0.1 10 ^3/uL (0-0.2); Hematocrit 26.6 % (36.0-46.0); Hemoglobin 8.2 g/dL (12.2-16.2); Mean Corpuscular Hemoglobin 19.8 pg (28.0-32.0); Monocytes # (auto) 0.3 10 ^3/uL (0-1.3); Neutrophils # (auto) 4.3 10 ^3/uL (1.6-8.6)
[2024-11-17 07:24] LABS: Basophils % (auto) 1.2 % (0.0-2.0); Eosinophils # (auto) 0.2 10 ^3/uL (0-0.8); Eosinophils % (auto) 3.9 % (0.0-7.0); Lymphocytes # (auto) 1.4 10 ^3/uL (0.4-5.4); Lymphocytes % (auto) 21.9 % (10.0-50.0); Mean Corpuscular Hgb Conc. 30.7 g/dL (32.0-36.0); Mean Corpuscular Volume 64.3 fL (80.0-100.0); Nucleated Red Blood Cells % 0.2 %; Platelet Count (auto) 328 10^3/uL (140-450); Red Blood Cells 4.14 10^6/uL (4.0-5.20); Red Cell Distribution Width 16.6 % (11.8-14.3); White Blood Cell 6.3 10^3/uL (4.4-10.8)
[2024-11-17 07:26] LABS: INR 0.95 (0.9-1.15); Partial Thromboplastin Time 23.2 SEC (24.5-34.5); Prothrombin Time 10.1 sec (9.3-11.8)
[2024-11-17 07:27] LABS: % Iron Saturation 4.9 % (15-50)
[2024-11-17 07:31] LABS: Carcinoembryonic Antigen 2.57 ng/mL (<=5.0)
[2024-11-17 07:32] LABS: Folate (Folic Acid) 6.8 ng/mL (>5.38)
--- NOTE | 2024-11-17 08:16 | DVHPN2 ---
Reviewed: Care Plan, H&P, Labs, Medications, Previous Orders, Radiology Changes from previous H/P or p: No Changes Objective Vitals Vital Signs Date Time Temp Pulse Resp B/P (MAP) Pulse Ox O2 Delivery O2 Flow Rate FiO2 11/17/24 05:00 98.5 98 18 108/61 (77) 97 98.5 11/16/24 20:00 Room Air* 0 21 Intake/Output Intake and Output 11/17/24 07:00 Intake Total 3395 ml Balance 3395 ml Intake Oral 3345 ml IV Total 50 ml # Voids 7 # Bowel Movements 5 Medications Current Medications Medications Dose Ordered Sig/Emery Route Start Time Stop Time Status Last Admin Dose Admin Clopidogrel Bisulfate 75 mg DAILY PO 11/16/24 10:00 11/16/24 09:54 75 MG Atorvastatin Calcium 20 mg HS PO 11/15/24 22:00 11/16/24 21:55 20 MG Enalapril Maleate 20 mg DAILY PO 11/16/24 10:00 11/16/24 09:54 20 MG Ceftriaxone Sodium 50 ml @ 100 mls/hr DAILY@09 IV 11/16/24 09:00 11/16/24 09:54 100 MLS/HR Diagnostic Test (Pha) 1 strip IQ4HR 11/15/24 20:00 11/17/24 03:57 1 STRIP Insulin Human Regular IQ4HR SC 11/15/24 20:00 11/17/24 04:04 2 UNITS Dextrose 50 ml UD PRN IV 11/15/24 19:15 Ondansetron HCl 4 mg Q4HP PRN IV 11/15/24 19:15 Acetaminophen 650 mg Q6HP PRN PO 11/15/24 19:15 Laboratory Results Laboratory Tests 11/16/24 05:46 11/17/24 05:27 Chemistry Test 11/16/24 15:34 Albumin 4.3 g/dL (3.2-4.8) Total Protein 6.9 g/dL (5.7-8.2) Coagulation Test 11/17/24 05:27 Prothrombin Time 10.1 sec (9.3-11.8) Prothrombin Time INR 0.95 (0.9-1.15) Activated Partial Thromboplast Time 23.2 SEC (24.5-34.5) L LFT Test 11/16/24 15:34 Alanine Aminotransferase (ALT) 11 U/L (7-40) Alkaline Phosphatase 98 U/L (46-116) Aspartate Amino Transferase (AST) 20 U/L (13-40) Direct Bilirubin < 0.1 mg/dL (<0.3) Total Bilirubin < 0.2 mg/dL (0.2-1.0) L Urinalysis Test 11/15/24 17:00 Urine Color Yellow (Yellow) Urine Clarity Clear (Clear) Urine pH 5.5 (5.0-9.0) Urine Specific [place] 1.020 (1.001-1.035) Urine Protein Negative (Negative) Urine Ketones Trace (Negative) Urine Blood Negative /uL (Negative) Urine Nitrite Negative (Negative) Urine Bilirubin Negative (Negative) Urine Urobilinogen Normal mg/dL (Negative) Urine Leukocyte Esterase 2+ /uL (Negative) Urine RBC 1 /hpf (0 - 4) Urine Microscopic WBC 28 /HPF (0-5) H Urine Squamous Epithelial Cells None seen /hpf (<5) Urine Bacteria None seen /hpf (None Seen) Urine Hyaline Casts Few /lpf (0 - 2) Urine Glucose 3+ mg/dL (Normal) H Microbiology Microbiology Date/Time Source Procedure Growth Status 11/15/24 17:06 Voided Urine Urine Culture - Preliminary Resulted Labs and/or images reviewed: Labs reviewed by me, Image(s) reviewed by me Assessment/Plan Assessment/Plan Sepsis secondary to urinary tract infection: Blood cultures pending, urine cultures negative, continue Rocephin Hypotension Hypercholesterolemia Diabetes History of CVA Anemia hemoglobin 8.1: Hemoglobin stable at 9.5, GI consult for Dr. Pat Woodward stool for occult blood; patient getting EGD today Diverticulosis Esophagitis and duodenitis by CT abd PCP Plan discussed with: Patient My Orders Orders - GORDY PERALTA MD Procedure Category Date Status Time Blood Culture RAMY 11/16/24 In Process 14:42 Stool Occult Blood LAB 11/16/24 Logged 14:49 * Gi D[facility] Part Time Flexible Clerk CONS 11/16/24 Transmitted 14:49 Date of Service: Nov 17, 2024 Billing Provider: GORDY PERALTA MD Common Visit Codes: [id number] INP/OBS CARE(HIGH) GORDY PERALTA MD Nov 17, 2024 08:16
--- NOTE | 2024-11-17 08:32 | DVH ---
XY CHEST TWO VIEWS ROUTINE CLINICAL HISTORY: EGD COMPARISON: None TECHNIQUE: Frontal and lateral view of the chest was obtained FINDINGS: Lines and Tubes: None Lungs: No focal consolidation. Pleura: No effusion. No pneumothorax. Cardiomediastinal contours: Unremarkable Bones: No acute osseous abnormality. IMPRESSION: No acute cardiopulmonary disease.
[2024-11-17] MEDS ORDERED: SODIUM CHLORIDE LOCK 10 ML ONE (09:30)
[2024-11-17] MEDS ORDERED: SIMETHICONE 40 MG/0.6 ML ORAL DROP ONE (10:26)
[2024-11-17] MEDS: LIDOCAINE VISCOUS 2% 15ML UD ONE (13:02)
[2024-11-17] MEDS: diphenhdrAMINE HCL 50 MG/1 ML VL ONE (13:03)
[2024-11-17] MEDS: fentaNYL CITRATE 100 MCG/2 ML VL ONE (13:03)
[2024-11-17] MEDS: MIDAZOLAM HCL 5 MG/ML-1ML VIAL ONE (13:03)
--- NOTE | 2024-11-17 13:17 | DVHOP2 ---
Operative Report DATE OF OPERATION: 11/17/24 PROCEDURE: Upper Endoscopy with biopsy. PREOPERATIVE INDICATION: The patient is a 64 -year-old female undergoing endoscopy for iron deficiency anemia and drop in hemoglobin hematocrit POSTOPERATIVE DIAGNOSES: 1. 2 cm sliding-type hiatal hernia with slightly irregular squamocolumnar junction no significant erosive esophagitis 2. Moderate gastroparesis with retained gastric food contents in the stomach PROCEDURE PERFORMED BY: Lucien Woodward GI NURSE: Alis SCOPE: Olympus videoendoscope. ASA CLASS: Class two PREOPERATIVE MEDICATIONS: Versed 1 mg, Fentanyl 25 mcg, Benadryl 50 mg I administered moderate sedation throughout this _8_ minutes procedure. An independent trained observer pushed medications at my direction, and monitored the patient's level of consciousness and physiological status throughout. PROCEDURE IN DETAIL: After obtaining an informed consent, the patient was placed on left lateral decubitus position. The patient was then sedated with the above medications. A bite block was placed between her teeth. The endoscope was then passed through the oropharynx, into the esophagus, and through the stomach and pylorus up to the second and third part of the duodenum. The endoscope was then withdrawn. The 2nd and 3rd part of the duodenal and the duodenal bulb were normal. Duodenal biopsies were obtained. The pre-pyloric area and antrum and body were essentially normal. The fundus and cardia could not be clearly visualized The patient had moderate gastroparesis with a moderate amount of retained food in the stomach. Gastric biopsies were obtained The endoscope was then withdrawn into the distal esophagus where the patient had a 2 cm sliding-type hiatal hernia with slightly irregular squamocolumnar junction There was no erosive esophagitis. The remaining distal and proximal esophagus and oropharynx were unremarkable The patient tolerated the procedure well without difficulty. COMPLICATIONS : None SPECIMENS: Gastric biopsies Antral biopsies DISPOSITION: Transfer back to the floor D/C to home PLAN: 1. Await for biopsy result 2. Will place pt on Protonix 40 mg p.o. daily 3. IV Reglan 5 mg q.8 hours for gastroparesis 4. Patient has been advised outpatient follow up with me for elective screening colonoscopy and further evaluation of anemia LUCIEN WOODWARD MD Nov 17, 2024 13:17
[2024-11-17] MEDS: METOCLOPRAMIDE HCL 5MG/ml INJ 2ml VIAL IV SCH (15:24)
--- NOTE | 2024-11-17 16:53 | ECG ---
[facility] Test Date: 2024-11-17 Test Time: 08:27:08 Pat Name: MILLA GRACIA Department: Respiratoy Room: 0212 Gender: F Hides Inspector: CHARAN BRIGGS : 1960 Requested By: GORDY PERALTA Order Number: [id number] Reading MD: Delfino Wallace Measurements Intervals [place] Rate: 76 P: 33 AK: 145 QRS: 46 QRSD: 94 T: 59 QT: 363 QTc: 409 Interpretive Statements Sinus rhythm Electronically Signed On 11-18-2024 8:49:37 PST by Delfino Wallace Please click the below link to view image of tracing.
[2024-11-18 01:00] VITALS: BP 105/56; PULSE 80; RESP 18; TEMP 98.8; O2SAT 100
[2024-11-18 05:26] VITALS: BP 104/55; PULSE 85; RESP 16; TEMP 98.3; O2SAT 99
--- NOTE | 2024-11-18 08:34 | DVHPN2 ---
Reviewed: Care Plan, H&P, Labs, Medications, Previous Orders, Radiology Changes from previous H/P or p: No Changes Objective Vitals Vital Signs Date Time Temp Pulse Resp B/P (MAP) Pulse Ox O2 Delivery O2 Flow Rate FiO2 11/18/24 05:26 98.3 85 16 104/55 (71) 99 98.3 11/17/24 20:00 Room Air* 0 21 Intake/Output Intake and Output 11/18/24 07:00 Intake Total 1700 ml Balance 1700 ml Intake Oral 1550 ml IV Total 150 ml # Voids 3 Medications Current Medications Medications Dose Ordered Sig/Emery Route Start Time Stop Time Status Last Admin Dose Admin Clopidogrel Bisulfate 75 mg DAILY PO 11/16/24 10:00 11/16/24 09:54 75 MG Atorvastatin Calcium 20 mg HS PO 11/15/24 22:00 11/17/24 21:23 20 MG Enalapril Maleate 20 mg DAILY PO 11/16/24 10:00 11/17/24 10:26 20 MG Ceftriaxone Sodium 50 ml @ 100 mls/hr DAILY@09 IV 11/16/24 09:00 11/17/24 08:33 100 MLS/HR Diagnostic Test (Pha) 1 strip IQ4HR 11/15/24 20:00 11/18/24 08:15 1 STRIP Insulin Human Regular IQ4HR SC 11/15/24 20:00 11/18/24 08:16 2 UNITS Dextrose 50 ml UD PRN IV 11/15/24 19:15 Ondansetron HCl 4 mg Q4HP PRN IV 11/15/24 19:15 Acetaminophen 650 mg Q6HP PRN PO 11/15/24 19:15 Metoclopramide HCl 5 mg Q8HR IV 11/17/24 14:00 11/18/24 05:30 5 MG Pantoprazole Sodium 40 mg DAILY IV 11/18/24 10:00 Laboratory Results Laboratory Tests 11/16/24 05:46 11/17/24 05:27 Urinalysis Test 11/15/24 17:00 Urine Color Yellow (Yellow) Urine Clarity Clear (Clear) Urine pH 5.5 (5.0-9.0) Urine Specific [place] 1.020 (1.001-1.035) Urine Protein Negative (Negative) Urine Ketones Trace (Negative) Urine Blood Negative /uL (Negative) Urine Nitrite Negative (Negative) Urine Bilirubin Negative (Negative) Urine Urobilinogen Normal mg/dL (Negative) Urine Leukocyte Esterase 2+ /uL (Negative) Urine RBC 1 /hpf (0 - 4) Urine Microscopic WBC 28 /HPF (0-5) H Urine Squamous Epithelial Cells None seen /hpf (<5) Urine Bacteria None seen /hpf (None Seen) Urine Hyaline Casts Few /lpf (0 - 2) Urine Glucose 3+ mg/dL (Normal) H Microbiology Microbiology Date/Time Source Procedure Growth Status 11/16/24 15:34 Blood Blood Culture - Preliminary NO GROWTH AFTER 24 HOURS OF INCUBATION. Resulted 11/15/24 17:06 Voided Urine Urine Culture - Preliminary Resulted Labs and/or images reviewed: Labs reviewed by me, Image(s) reviewed by me Assessment/Plan Assessment/Plan Sepsis secondary to urinary tract infection: Blood cultures negative, urine cultures mixed, continue Rocephin Hypotension Hypercholesterolemia Diabetes History of CVA Anemia hemoglobin 8.1: Hemoglobin stable at 9.5, stool for occult blood positive; Gastroparesis by EGD by Dr. Pat Woodward, no other acute changes or bleeding Diverticulosis Esophagitis and duodenitis by CT abdomen PCP Patient wants to go home Plan discussed with: Patient Date of Service: Nov 18, 2024 Billing Provider: GORDY PERALTA MD Common Visit Codes: [id number] INP/OBS CARE(HIGH) GORDY PERALTA MD Nov 18, 2024 08:34
[2024-11-18] MEDS ORDERED: FERR-7 PO (08:36)
[2024-11-18] MEDS ORDERED: PANT40T PO (08:36)
[2024-11-18] MEDS ORDERED: CIPR-173 PO (08:36)
--- NOTE | 2024-11-18 08:39 | DVHDS2 ---
Discharge Summary Date of Admission Nov 15, 2024 at 18:56 Date of Discharge: Nov 18, 2024 Admitting Diagnosis Blood in the stool Wounds: EGD Labs/Diagnostic Data: Laboratory Results Test 11/18/24 08:03 11/17/24 12:53 11/17/24 05:27 11/16/24 16:42 POC Glucose 147 mg/dl (70-106) Stool Occult Blood Positive x 1 (Negative) Stool Occult Blood Sample #3 (Negative) White Blood Count 6.3 10^3/uL (4.4-10.8) Red Blood Count 4.14 10^6/uL (4.0-5.20) Hemoglobin 8.2 g/dL (12.2-16.2) Hematocrit 26.6 % (36.0-46.0) Mean Corpuscular Volume 64.3 fL (80.0-100.0) Mean Corpuscular Hemoglobin 19.8 pg (28.0-32.0) Mean Corpuscular Hemoglobin Concent 30.7 g/dL (32.0-36.0) Red Cell Distribution Width 16.6 % (11.8-14.3) Platelet Count 328 10^3/uL (140-450) Mean Platelet Volume 8.4 fL (6.9-10.8) Neutrophils (%) (Auto) 68.0 % (37.0-80.0) Lymphocytes (%) (Auto) 21.9 % (10.0-50.0) Monocytes (%) (Auto) 5.0 % (0.0-12.0) Eosinophils (%) (Auto) 3.9 % (0.0-7.0) Basophils (%) (Auto) 1.2 % (0.0-2.0) Neutrophils # (Auto) 4.3 10 ^3/uL (1.6-8.6) Lymphocytes # (Auto) 1.4 10 ^3/uL (0.4-5.4) Monocytes # (Auto) 0.3 10 ^3/uL (0-1.3) Eosinophils # (Auto) 0.2 10 ^3/uL (0-0.8) Basophils # (Auto) 0.1 10 ^3/uL (0-0.2) Nucleated Red Blood Cells 0.2 % Prothrombin Time 10.1 sec (9.3-11.8) Prothrombin Time INR 0.95 (0.9-1.15) Activated Partial Thromboplast Time 23.2 SEC (24.5-34.5) Iron Level 27 ug/dL (50-170) Total Iron Binding Capacity 547 ug/dL (250-425) Percent Iron Saturation 4.9 % (15-50) Carcinoembryonic Antigen 2.57 ng/mL (<=5.0) Vitamin B12 Level 771 pg/mL (211-911) Folic Acid 6.80 ng/mL (>5.38) Beta HCG, Quantitative 2.8 mIU/mL (1.5-4.2) Ammonia 18 umol/L (11-32) Test 11/16/24 15:34 11/16/24 05:46 11/15/24 17:00 Total Bilirubin < 0.2 mg/dL (0.2-1.0) Direct Bilirubin < 0.1 mg/dL (<0.3) Aspartate Amino Transferase (AST) 20 U/L (13-40) Alanine Aminotransferase (ALT) 11 U/L (7-40) Alkaline Phosphatase 98 U/L (46-116) Total Protein 6.9 g/dL (5.7-8.2) Albumin 4.3 g/dL (3.2-4.8) Platelet Estimate Adequate Large Platelets Few Hypochromasia (manual) Marked Poikilocytosis (manual) Slight Microcytosis Marked Ovalocytes Few Schistocytes Few Sodium Level 140 mmol/L (136-145) Potassium Level 4.2 mmol/L (3.5-5.1) Chloride Level 111 mmol/L (98-107) Carbon Dioxide Level 22 mmol/L (20-31) Anion Gap 7 (5-15) Blood Urea Nitrogen 30 mg/dL (9-23) Creatinine 1.04 mg/dL (0.550-1.02) Glomerular Filtration Rate Calc 60 mL/min (>90) BUN/Creatinine Ratio 28.8 (10.0-20.0) Serum Glucose 101 mg/dL (74-106) Calcium Level 9.4 mg/dL (8.7-10.4) Urine Color Yellow (Yellow) Urine Clarity Clear (Clear) Urine pH 5.5 (5.0-9.0) Urine Specific [place] 1.020 (1.001-1.035) Urine Protein Negative (Negative) Urine Ketones Trace (Negative) Urine Blood Negative /uL (Negative) Urine Nitrite Negative (Negative) Urine Bilirubin Negative (Negative) Urine Urobilinogen Normal mg/dL (Negative) Urine Leukocyte Esterase 2+ /uL (Negative) Urine RBC 1 /hpf (0 - 4) Urine Microscopic WBC 28 /HPF (0-5) Urine Squamous Epithelial Cells None seen /hpf (<5) Urine Bacteria None seen /hpf (None Seen) Urine Hyaline Casts Few /lpf (0 - 2) Urine Glucose 3+ mg/dL (Normal) Other Laboratory Tests 11/17/24 05:27 11/16/24 05:46 Brief Hx & Hospital Course: 64-year-old female came in for blood in the stool and weakness found to have sepsis secondary to urinary tract infection treated with Rocephin blood cultures negative urine cultures were mixed patient has a history of hypercholesterolemia diabetes and CVA hemoglobin was low 8.1 and stable at 9.1 stool for occult blood positive EGD shows sliding-type hiatal hernia and gastroparesis no other acute changes or bleeding. CT abdomen pelvis without contrast showed esophagitis and duodenitis patient was placed on pantoprazole. Patient wants to go home discharged home on pantoprazole iron tablets and Cipro for UTI. Condition satisfactory. Consults/Reason for consult GI Dr. Pat Woodward Operations or Procedures EGD Condition at Discharge: Fair Final Diagnosis/Problems List Sepsis secondary to urinary tract infection: Blood cultures negative, urine cultures mixed, continue Rocephin Hypotension Hypercholesterolemia Diabetes History of CVA Anemia hemoglobin 8.1: Hemoglobin stable at 9.5, stool for occult blood positive; Gastroparesis by EGD by Dr. Pat Woodward, no other acute changes or bleeding Diverticulosis Esophagitis and duodenitis by CT abdomen Discharge Disposition: Home Discharge Instruct/Medications Diet: Cardiac 2g Na,low cholest Activity: Light activity Follow Up/Referral: Follow up with your primary DrJovana Resume all previous home medications Medications: Iron Pantoprazole Cipro Transmitted to [facility] 35 (Time taken for discharge summary 35 minutes) Discharge Statement: "Patient was advised to return to the ER or call 911 if any headaches, dizziness, shortness of breath, chest pain, abdominal pain, bleeding, fevers, or worsening of medical condition. Patient was counseled about treatment plan, medications, possible side effects, patientverbalized understanding. All questions were answered to the best of my ability. This discharge took greater then 30 minutes in planning, reviewing documentation, counseling the patient, and discussing with other team members." ASSESSMENT ASSESSMENT Hospital Course Improved Assessment Sepsis secondary to urinary tract infection: Blood cultures negative, urine cultures mixed, continue Rocephin Hypotension Hypercholesterolemia Diabetes History of CVA Anemia hemoglobin 8.1: Hemoglobin stable at 9.5, stool for occult blood positive; Gastroparesis by EGD by Dr. Pat Woodward, no other acute changes or bleeding Diverticulosis Esophagitis and duodenitis by CT abdomen Date of Service: Nov 18, 2024 Billing Provider: GORDY PERALTA MD Common Visit Codes: 72794-QTA/OBS DISCH DAY >30min GORDY PERALTA MD Nov 18, 2024 08:39
[2024-11-18 09:00] VITALS: BP 98/51; PULSE 67; RESP 14; TEMP 98.6; O2SAT 97
[2024-11-18] MEDS: PANTOPRAZOLE 40 MG/10 ML VIAL INJ IV SCH (09:08)
== END 2024-11-18 12:40 | disposition home or self-care (01) | DRG 368 ==
LOC: ER 15:21 → CENTRAL 18:54 → OVERFLOW 18:56 → CENTRAL 21:47
PROVIDERS: ADMIT Nurse Practitioner; ATTEND Family Medicine
PROC: 0DD78ZX Extraction of Stomach, Pylorus, Via Natural or Artificial Opening Endoscopic, Diagnostic (ICD-10-PCS; 2024-11-17)
PROC: 0DD68ZX Extraction of Stomach, Via Natural or Artificial Opening Endoscopic, Diagnostic (ICD-10-PCS; principal; 2024-11-17 12:56)
DX: K20.91 Esophagitis, unspecified with bleeding (principal); G93.41 Metabolic encephalopathy; N17.0 Acute kidney failure with tubular necrosis; N30.00 Acute cystitis without hematuria; E11.649 Type 2 diabetes mellitus with hypoglycemia without coma; E78.5 Hyperlipidemia, unspecified; D25.9 Leiomyoma of uterus, unspecified; I10 Essential (primary) hypertension; D50.9 Iron deficiency anemia, unspecified; E78.00 Pure hypercholesterolemia, unspecified; E11.43 Type 2 diabetes mellitus with diabetic autonomic (poly)neuropathy; K29.80 Duodenitis without bleeding; K31.84 Gastroparesis; K44.9 Diaphragmatic hernia without obstruction or gangrene; K57.30 Diverticulosis of large intestine without perforation or abscess without bleeding; N20.0 Calculus of kidney; I95.9 Hypotension, unspecified; Z87.891 Personal history of nicotine dependence; Z86.73 Personal history of transient ischemic attack (TIA), and cerebral infarction without residual deficits; Z82.49 Family history of ischemic heart disease and other diseases of the circulatory system; Z80.0 Family history of malignant neoplasm of digestive organs
CPT/HCPCS: 36415; 43239; 70450; 71046; 74176; 80048; 80076; 81001; 82140; 82270; 82378; 82607; 82746; 82962; 83540; 83550; 84702; 85025; 85610; 85730; 86850; 86900; 86901; 87040; 87086; 93005; 96365; 99291; 99292; G0378; J1815; J2250; J2470

== ENCOUNTER 2025-10-01 20:47 | Emergency (ER) | payer OTHER, MEDICAID ==
[~2025-10-01] VITALS: Ht 149.9 cm; Wt 49.7 kg
[~2025-10-01 20:47] MED LIST changes: +CIPR-173 PO; +FERR-7 PO; +PANT40T PO; -TRAM50TA2 PO; -VALA1TAB PO
--- NOTE | 2025-10-01 21:28 | ED.PDOC ---
Back pain HPI HPI Comments 65 y.o female with PMHx of HTN, DM, HLD, and CVA, presents to the ED for a chief complaint of back pain associated with a runny nose, cough, and congestion that started this morning. She denies any chest pain, fever, chills, nausea, vomiting, abdominal pain. Chief Complaint: Back Pain Time Seen by MD: 21:27 Primary Care Provider: BRINDA Gutierrez Notes: Nurses Notes, Medications, Allergies Allergies: Coded Allergies: NO KNOWN ALLERGIES (Unverified , 04/04/10) Home Meds Active Scripts Ciprofloxacin Hcl (Cipro) 500 Mg Tab, 1 TAB PO BID, #20 TAB Prov:GORDY PERALTA MD 11/18/24 Ferrous Sulfate (Iron) 325 Mg Tab, 325 MG PO BID, #180 TAB Prov:GORDY PERALTA MD 11/18/24 Pantoprazole Sodium Sesquihydr (Pantoprazole Sodium) 40 Mg Tab, 40 MG PO DAILY, #30 TAB Prov:GORDY PERALTA MD 11/18/24 Reported Medications Glipizide (Glipizide) 5 Mg Tab, 1 TAB PO BID 01/07/21 Metformin Hydrochloride (Metformin Hcl) 1,000 Mg Tab, 1 TAB PO BID 01/07/21 Clopidogrel Bisulfate (CLOPIDOGREL) 75 Mg Tab, 1 TAB PO DAILYPRN 01/07/21 Dorzolamide HCl (Dorzolamide Hydrochloride) 2 % Radha 01/07/21 Latanoprost (LATANOPROST) 0.005 % Radha, 1 DROP RIGHTEYE 01/07/21 Ferrous Sulfate (Ferosul) 325 Mg Tab, 1 TAB PO Q8H 01/07/21 Alendronate Sodium (Alendronate Sodium) 70 Mg Tab, 1 TAB PO QWEEKLY 01/07/21 Brimonidine Tartrate (Brimonidine Tartrate) 0.2 % Radha, 1 DROP EACHEYE TID 01/07/21 Simvastatin (Simvastatin) 20 Mg Tab, 1 TAB PO 01/07/21 Enalapril Maleate (Enalapril Maleate) 20 Mg Tab, 1 TAB PO DAILYPRN 01/07/21 Information Source: Patient Mode of Arrival: Ambulatory Timing: Hours Duration: Since onset Severity: Moderate Quality: Sharp Onset: Spontaneous Past Medical History PAST MEDICAL HISTORY: CVA, DM, High Lipids, HTN Surgical History: MOVIE CRITIC History: No Pertinent MOVIE CRITIC History Family History Family History (Other): Thyroid disease Social History Smoker: Quit Less Than 1 Year Alcohol: Denies ETOH Use Drugs: Marijuana, Methamphetamine Lives In: Home Constitutional: denies: chills, diaphoresis, fatigue, fever, malaise, sweats, weakness, others EENTM: reports: nasal discharge, nose congestion; denies: blurred vision, double vision, ear bleeding, ear discharge, ear drainage, ear pain, ear ringing, eye pain, eye redness, hearing loss, mouth pain, mouth swelling, nose bleeding, nose pain, photophobia, tearing, throat pain, throat swelling, voice changes, others Respiratory: reports: cough; denies: hemoptysis, orthopnea, SOB at rest, shortness of breath, SOB with excertion, stridor, wheezing, others Cardiovascular: denies: chest pain, dizzy spells, diaphoresis, Dyspnea on exertion, edema, irregular heart beat, left arm pain, lightheadedness, palpitations, PND, syncope, others Gastrointestinal: denies: abdomen distended, abdominal pain, blood streaked bowels, constipated, diarrhea, dysphagia, difficulty swallowing, hematemesis, melena, nausea, poor appetite, poor fluid intake, rectal bleeding, rectal pain, vomiting, others Genitourinary: denies: abnormal vagina bleeding, burning, dyspareunia, dysuria, flank pain, frequency, hematuria, incontinence, pain, , vagina discharge, urgency, others Neurological: denies: dizziness, fainting, headache, left sided numbness, left sided weakness, numbness, paresthesia, pre-existing deficit, right sided numbness, right sided weakness, seizure, speech problems, tingling, tremors, weakness, others Musculoskeletal: reports: back pain; denies: gout, joint pain, joint swelling, muscle pain, muscle stiffness, neck pain, others Integumetry: denies: bruises, change in color, change in hair/nails, dryness, laceration, lesions, lumps, rash, wounds, others Allergic/Immunocompromised: denies: Difficulty Healing, Frequent Infections, Hives, Itching, others Hematologic/Lymphatic: denies: anemia, blood clots, easy bleeding, easy bruising, swollen glands, others Endocrine: denies: excessive hunger, excessive sweating, excessive thirst, excessive urination, flushing, intolerance to cold, intolerance to heat, unexplained weight gain, unexplained weight loss, others Psychiatric: denies: anxiety, bipolar disorder, depression, hopeless, panic disorder, schizophrenia, sleepless, suicidal, others All Other Systems: Reviewed and Negative Was a procedure done? Was a procedure done?: No Back Pain Differential Dx Differential Diagnosis: DJD, Fracture, Musculoskeletal Pain X-Ray, Labs, Meds, VS Vital Signs Date Time Temp Pulse Resp B/P (MAP) Pulse Ox O2 Delivery O2 Flow Rate FiO2 10/02/25 00:17 99.3 89 19 117/57 (77) 100 99.3 10/02/25 00:17 89 19 100 Room Air 10/01/25 20:50 97.6 91 16 139/88 98 97.6 Current Medications Medications (Trade) Dose Ordered Sig/Emery Route Start Time Stop Time Status Last Admin Ketorolac Tromethamine (Toradol Injection) 60 mg ONCE ONCE IM 10/02/25 00:00 10/02/25 00:01 DC 10/02/25 00:06 Acetaminophen/ Hydrocodone Bitart ([place] 5/325MG Tab) 1 tab ONCE ONCE PO 10/02/25 00:00 10/02/25 00:01 DC 10/02/25 00:07 Time of 1ST Reevaluation: 21:45 Reevaluation 1ST: Unchanged Patient Education/Counseling: Diagnosis, Treatment Family Education/Counseling: No Family Present SEPSIS Sepsis Screen Date sepsis recognized/suspect: Oct 01, 2025 Time Sepsis recognized/suspect: 2052 Recent Procedure: No On Antibiotic Therapy: No Respiratory Rate >20: No Heart Rate >90: No Temp<36 C (96.8 F) or >38.3 C: No SBP <90 or MAP <65 mmHG: No New Acute Mental Status Change: No Is the patient on CPAP, BIPAP,: No Physician Orders Chest Two Views Routine (10/01/25 21:18) Vital Signs Date Time Temp Pulse Resp B/P (MAP) Pulse Ox O2 Delivery O2 Flow Rate FiO2 10/02/25 00:17 99.3 89 19 117/57 (77) 100 99.3 10/02/25 00:17 89 19 100 Room Air 10/01/25 20:50 97.6 91 16 139/88 98 97.6 Medications Medications Dose Ordered Sig/Emery Route Start Time Stop Time Status Last Admin Dose Admin Acetaminophen/ Hydrocodone Bitart 1 tab ONCE ONCE PO 10/02/25 00:00 10/02/25 00:01 DC 10/02/25 00:07 Ketorolac Tromethamine 60 mg ONCE ONCE IM 10/02/25 00:00 10/02/25 00:01 DC 10/02/25 00:06 Departure 1 Departure Time of Disposition: 01:04 Impression: Primary Impression: Strain of muscle and tendon of back wall of thorax, initial encounter Disposition: HOME / SELF CARE / HOMELESS Condition: Stable e-Prescriptions Methocarbamol (Methocarbamol) 500 Mg Tab 250 MG PO BID PRN for 5 Days, #5 TAB Start with a half tab as needed for muscle spasms and pain twice daily. Increase to one tab twice daily as tolerated Prov: RICKY LYNN 10/02/25 Methylprednisolone (Medrol Dosepak) 4 Mg [place] 4 MG PO UD for 6 Days, #21 TAB UAD Prov: RICKY LYNN 10/02/25 Discharged With: Relative Critical Care Note Critical Care Time?: No Stability Stability form required: No I personally scribed for ER ([email or web address]) on 10/01/25 at 21:28. Electronically submitted by Arminda Caro ([facility]). ER Oct 01, 2025 21:28 RICKY LYNN Oct 01, 2025 23:39
--- NOTE | 2025-10-01 22:12 | DVH ---
XY CHEST TWO VIEWS ROUTINE CLINICAL HISTORY: Thoracic back pain with inspiration COMPARISON: XY CHEST TWO VIEWS ROUTINE on DOS: 11/17/24 TECHNIQUE: Frontal and lateral view of the chest was obtained FINDINGS: Lines and Tubes: None Lungs: No focal consolidation. Mild elevation of the right hemidiaphragm. Pleura: No effusion. No pneumothorax. Cardiomediastinal contours: Unremarkable Bones: No acute osseous abnormality. IMPRESSION: No acute cardiopulmonary disease.
[2025-10-02] MEDS: KETOROLAC TROMETH 60MG/2ML VIAL IM ONE (00:06)
[2025-10-02] MEDS: HYDROcodone-ACET 5/325MG TAB PO ONE (00:07)
[2025-10-02 00:17] VITALS: BP 117/57; PULSE 89; RESP 19; TEMP 99.3; O2SAT 100
[2025-10-02] MEDS ORDERED: METH4PAK PO (01:08)
[2025-10-02] MEDS ORDERED: METH-1181 PO (01:08)
== END 2025-10-02 01:17 | disposition home or self-care (01) ==
LOC: ER 20:47
DX: S29.012A Strain of muscle and tendon of back wall of thorax, initial encounter (principal); F12.90 Cannabis use, unspecified, uncomplicated; F19.90 Other psychoactive substance use, unspecified, uncomplicated; E78.5 Hyperlipidemia, unspecified; E11.9 Type 2 diabetes mellitus without complications; I10 Essential (primary) hypertension; Z79.899 Other long term (current) drug therapy; Z86.73 Personal history of transient ischemic attack (TIA), and cerebral infarction without residual deficits; Z79.84 Long term (current) use of oral hypoglycemic drugs; X58.XXXA Exposure to other specified factors, initial encounter; Y93.89 Activity, other specified; Y92.89 Other specified places as the place of occurrence of the external cause; Y99.8 Other external cause status
CPT/HCPCS: 71046; 96372; 99283; J1885